=== PATIENT | male | born 1945 | race Caucasian/White ===

== ENCOUNTER → 2019-11-07 10:11 | Outpatient (CLI) | payer MEDICARE, SELFPAY ==
--- NOTE | 2019-11-07 | DI.RAD.S_ITS ---
PROCEDURE: FL BARIUM SWALLOW INDICATIONS: DYSPHAGIA COMPARISON: None. FINDINGS: Function: There is delayed and decreased esophageal peristalsis. No elicited gastroesophageal reflux. There is normal transit of a calibrated barium tablet through the esophagus into the stomach. Morphology: Air-contrast images demonstrate normal mucosal morphology. Single contrast views show no esophageal strictures, extrinsic mass effects, or diverticula. Limited images of the stomach demonstrate normal appearance. IMPRESSION: Esophageal dysmotility Dictated by: Jl Lora M.D. on 11/07/2019 at 10:58 Approved by: Jl Lora M.D. on 11/07/2019 at 10:59
== END ==
PROVIDERS: PCP Physician Assistant Medical; Referring Provider Physician Assistant Medical; Visit Provider Physician Assistant Medical
DX: R13.10 Dysphagia, unspecified (principal); K22.4 Dyskinesia of esophagus
CPT/HCPCS: 74220

== ENCOUNTER 2023-09-15 17:07 | Inpatient (IN) | payer MEDICARE, SELFPAY ==
[2023-09-15] VITALS (14 sets, daily range): BP systolic 110–156; BP diastolic 55–78; PULSE 55–83; RESP 18–39; TEMP 35.9–36.6; O2SAT 90–99; BMI 18.1
[2023-09-15 17:48] LABS: Add Manual Diff / Slide Review NO; Basophils Absolute Auto 0 /uL (0-100); Basophils Percent Auto 0.6 % (0-2); Eosinophils Absolute Auto 200 /uL (0-450); Hematocrit 34.1 % (41-53); Hemoglobin 11.1 g/dL (13.5-17.5); Lymphocytes Absolute Auto 1600 /uL (1100-4500); Lymphocytes Percent Auto 18.3 % (25-40); Mean Corpuscular HGB Conc 32.5 % (30-36); Mean Corpuscular Hemoglobin 28.1 PG (26-34); Mean Corpuscular Volume 86.4 fL (80-100); Monocytes Absolute Auto 400 /uL (0-900); Monocytes Percent Auto 4.6 % (3-14); Neutrophils Absolute Auto 6300 /uL (1500-7000); Neutrophils Percent Auto 74.5 % (50-75); Platelet Count 427 X10^3/uL (150-400); Red Blood Cell Count 3.94 X10^6/uL (4.5-5.9); White Blood Cell Count 8.5 X10^3/uL (4.5-11.0)
[2023-09-15 17:55] LABS: INR 1.1 (0.9-1.3); Prothrombin Time 12.1 SECONDS (9.4-12.5)
[2023-09-15 17:58] LABS: PTT Partial Thromboplastin Tim 32 SECONDS (25.1-36.5)
[2023-09-15 17:59] LABS: Alanine Aminotransferase 20 IU/L (<50); Albumin 3.4 g/dL (3.5-5.0); Albumin Globulin Ratio 0.8 (1.0-2.8); Alkaline Phosphatase 93 U/L (38-126); Aspartate Aminotransferase 34 IU/L (17-59); BUN Creatinine Ratio 12.8 (6-22); Bilirubin Total 0.6 mg/dL (0.2-1.3); Blood Urea Nitrogen 19 mg/dL (9-20); Carbon Dioxide 27 mmol/L (22-32); Chloride 107 mmol/L (98-107); Estimated Glomerular Filt Rate 48 mL/min (>60); Globulin 4.1 g/dL (1.7-4.1); Glucose 103 mg/dL (80-110); HEMOLYSIS < 15 (0-50); Potassium 4.6 mmol/L (3.4-5.1); Sodium 137 mmol/L (137-145); Total Protein 7.5 g/dL (6.3-8.2)
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
--- NOTE | 2023-09-15 18:33 | DI.CT.S_ITS ---
PROCEDURE: CT ABDOMEN PELVIS W CON INDICATIONS: abdominal pain TECHNIQUE: After the administration of intravenous contrast, axial sections acquired from the lung bases to the pubic symphysis. Coronal and sagittal reformats were performed. For radiation dose reduction, the following was used: automated exposure control, adjustment of mA and/or kV according to patient size. COMPARISON: None. FINDINGS: Image quality: Diagnostic. Lower Chest: Lung findings are reported separately on CT angiogram of the chest study. ABDOMEN: Liver: No solid mass. Gallbladder: Cholelithiasis without CT evidence for acute cholecystitis. Biliary ducts: No biliary dilation. Pancreas: No ductal dilation. Spleen: Size is within normal limits. Adrenal Glands: No adrenal nodules. Kidneys and Ureters: No hydronephrosis. No solid mass. No complex renal cystic lesion which requires follow up. Stomach and Bowel: There is also circumferential wall thickening and associated pericolonic inflammation of the distal sigmoid colon and rectum. There is circumferential wall thickening and inflammatory changes of the distal small bowel and ileum with associated fluid-filled bowel. Moderate wall thickening. No evidence for bowel obstruction proximally. Scattered colonic diverticulosis. Peritoneum: No abnormal intraperitoneal fluid. No free air. Ventral Wall: No significant ventral hernia. Abdominal Nodes: No retroperitoneal or mesenteric adenopathy by size criteria. Vessels: Moderate atherosclerotic calcifications of the abdominal aorta with mild aneurysmal dilatation. Infrarenal abdominal aorta measures up to 3.4 x 3.1 cm (28/series 2). IVC appears patent. PELVIS: Pelvic Organs: Unremarkable. Bladder: No bladder wall thickening, accounting for underdistention. Pelvic Nodes: No enlarged lymph nodes. Miscellaneous: No inguinal hernias are seen. Bones: No aggressive osseous abnormality. No acute vertebral body compression fractures. Multilevel spondylitic changes throughout the imaged spine. No suspicious osseous lesions. IMPRESSION: 1. Circumferential wall thickening and inflammatory changes involving the distal sigmoid colon, rectum, and distal small bowel and terminal ileum likely related to infectious or inflammatory colitis/enteritis. Favor inflammatory etiology given distribution. No evidence for bowel obstruction. 2. Colonic diverticulosis. 3. Atherosclerosis with infrarenal abdominal aortic aneurysm measuring up to 3.4 cm in size. 4. Cholelithiasis without CT evidence for acute cholecystitis. Other chronic findings as above. Dictated by: Stewart Zarate M.D. on 09/15/2023 at 20:24 Approved by: Stewart Zarate M.D. on 09/15/2023 at 20:30
--- NOTE | 2023-09-15 18:33 | DI.CT.S_ITS ---
PROCEDURE: CT ANGIO CHEST PE PROTOCOL INDICATIONS: hemoptosis TECHNIQUE: After the administration of intravenous contrast, 2 mm thick sections acquired from the pulmonary apices to the posterior costophrenic angles. 3-dimensional maximum intensity projection (MIP) coronal and sagittal reformats were then acquired through the thorax. For radiation dose reduction, the following was used: automated exposure control, adjustment of mA and/or kV according to patient size. COMPARISON: None. FINDINGS: Image quality: Diagnostic. Pulmonary arteries: Pulmonary arteries are normal in size, and demonstrate no intraluminal filling defects to suggest central pulmonary embolism. Lower Neck: No enlarged lymph nodes. Thyroid: No thyroid nodules which require sonographic follow up, per consensus guidelines. Axillae: No enlarged lymph nodes. Chest Wall: Unremarkable. Bones: No acute vertebral body compression fractures. Multilevel spondylitic changes throughout the imaged spine. No suspicious osseous lesions. Lungs and Pleura: No pneumothorax or pleural effusions. Moderate upper lobe predominant pulmonary emphysema. No pneumothorax. Bilateral perihilar airway thickening. Mild patchy bibasilar atelectasis. Very small tree-in-bud opacities of the periphery of the bilateral lower lobes more pronounced on the right. Suggestion of mild filling defects within the airways of the bilateral lower lobes suggestive of aspiration. Patchy consolidations involving the right apex extending towards the medial right upper lobe inferiorly. No mass effect upon the adjacent structures. Heart: Heart size is normal. No pericardial effusion. Thoracic Vessels: No aortic aneurysm. Atherosclerosis. Mediastinum and [place]: No enlarged lymph nodes. Esophagus: No wall thickening. No hiatal hernia. Upper Abdomen: Cholelithiasis. Atherosclerosis. Other visualized upper abdomen solid organs and bowel loops appear unremarkable. IMPRESSION: No acute pulmonary embolus. Patchy airspace consolidations involving the right lung apex extending towards the inferior, medial right upper lobe likely representing acute infectious or inflammatory process. Neoplasm not excluded. Recommend follow-up CT in 3 months to document stability versus resolution. No adenopathy seen. No suspicious pulmonary nodules or mass lesions otherwise. Numerous scattered peripheral tree-in-bud opacities predominantly in the dependent portions of the bilateral lower lobes with associated mild lower lobe bronchiectasis. Findings are suggestive of aspiration. Atypical pneumonia or mycobacterial infection may have a similar appearance. Moderate upper lobe predominant pulmonary emphysema. Moderate atherosclerotic vascular calcifications. Dictated by: Stewart Zarate M.D. on 09/15/2023 at 20:16 Approved by: Stewart Zarate M.D. on 09/15/2023 at 20:24
[2023-09-15] MEDS: methylPREDNISolone 125 MG/2 ML VIAL IV (18:45)
[2023-09-15] MEDS: SODIUM CHLORIDE 0.9% 1,000 ML 1000 ML IV (18:45)
[2023-09-15] MEDS: ONDANSETRON 4 MG/2 ML INJ IV (18:45)
[2023-09-15] MEDS: ALBUTEROL/IPRATROPIUM 3 ML AMPUL INH (19:08)
[2023-09-15] MEDS: AZITHROMYCIN 500 MG in DEXTROSE 5% IN WATER 250 ML 250 MG IV (21:33)
[2023-09-15 21:48] LABS: NT-proBNP (BNP-Adult 18+) 1490 pg/mL (<450); Troponin I < 0.012 ng/mL (0.01-0.034)
--- NOTE | 2023-09-15 22:03 | P.HP_ITS ---
History of Present Illness History of Present Illness Date Patient Seen: 09/15/23 Chief complaint: coughing up blood, short of breath Narrative: 78 y/o with PMH of Crohn's disease, HTN, HLD, smoking and COPD, seen in another hospiktal few days ago with shortness of breath, cough and diaghnosed with PNA, COPD Exacerbation, prescribed Levaquin and discharged home. Since he did not improve and dyspnea and hemoptysis got worse, he presented to ED. CT showing RUL infiltrate with possible underlying mass. Not septic. Given Cefepime and admitted for IV abx and oxygen. [facility] Medical History Chronic anemia Crohn's disease Nonsustained ventricular tachycardia COPD (chronic obstructive pulmonary disease) Social History household members: friend(s) and caregiver Smoking Status: Current every day smoker alcohol intake: never Meds Home Medications and Allergies Home Medications Medication Instructions Recorded Confirmed Type LISINOPRIL/HYDROCHLOROTHIAZIDE 1 tab PO QDAY ##0 05/14/11 History (Lisinopril-Hctz 20-25 MG Tab) ferrous gluconate 240 mg (27 mg 240 mg PO ##0 04/26/17 History iron) tablet (Iron High Potency) omega 4-mux-cmx-fish oil 1,000 mg 1,000 mg PO ##3 04/26/17 History (120 mg-180 mg) capsule (Fish Oil) Allergies Allergy/AdvReac Type Severity Reaction Status Date / Time adhesive [ADHESIVE] Allergy Mild RASH Verified 09/15/23 17:20 simvastatin [SIMVASTATIN] Allergy Mild WELTS Verified 09/15/23 17:20 Review of Systems Constitutional Comments: He lost weight, knows b/o the belt tightening rather then weighing. Without fever or chills Cardiovascular Comments: w/o chest pain Respiratory Comments: hemoptysis today short of breath Gastrointestinal Comments: episodic diarrhea and abdominal pain, chronic, 2nd to Crohn's disease Genitourinary Comments: w/o dysuria Exam Vital Signs (past 8 hours): - 09/15/23 17:08 09/15/23 17:17 09/15/23 17:30 Temperature 97.8 F Pulse Rate 78 82 Respiratory Rate 18 22 Blood Pressure 156/74 H 156/78 H Pulse Oximetry 93 93 Oxygen Delivery Method Room Air Nasal Cannula Oxygen Flow Rate 3 09/15/23 17:30 09/15/23 18:00 09/15/23 18:00 Temperature Pulse Rate 83 65 Respiratory Rate 39 H 29 H Blood Pressure 126/66 Pulse Oximetry 90 L 90 L Oxygen Delivery Method Nasal Cannula Nasal Cannula Oxygen Flow Rate 3 3 09/15/23 18:30 09/15/23 18:30 09/15/23 19:00 Temperature Pulse Rate 66 65 Respiratory Rate 28 H Blood Pressure 139/63 Pulse Oximetry 91 99 Oxygen Delivery Method Nasal Cannula Nasal Cannula Oxygen Flow Rate 3 3 09/15/23 19:30 09/15/23 20:00 Temperature Pulse Rate 60 61 Respiratory Rate 33 H 32 H Blood Pressure Pulse Oximetry 93 91 Oxygen Delivery Method Nasal Cannula Nasal Cannula Oxygen Flow Rate 3 3 Oxygen Delivery Method Nasal Cannula Oxygen Flow Rate 3 Const Other: In no distress, sitting in bed eating sandwich. Appears cachectic. HENMT Other: temporal wasting, reactive pupils, eomi Neck Other: supple Resp Other: decreased air flow b/l, more on the right mild wheezes on the right b/l rhonchi, > on the right Cardio Other: RRR GI Other: not distended Skin Other: no rashes Extrem Other: atrophic muscles Psych Other: decisional Objective Labs 09/15/23 17:35 09/15/23 17:35 Labs: Laboratory Results - last 24 hr 09/15/23 17:35 WBC 8.5 RBC 3.94 L Hgb 11.1 L Hct 34.1 L MCV 86.4 MCH 28.1 MCHC 32.5 RDW 17.0 H Plt Count 427 H Neut % (Auto) 74.5 Lymph % (Auto) 18.3 L [place] % (Auto) 4.6 Eos % (Auto) 2.0 Baso % (Auto) 0.6 Neut # (Auto) 6300 Lymph # (Auto) 1600 [place] # (Auto) 400 Eos # (Auto) 200 Baso # (Auto) 0 PT 12.1 INR 1.1 APTT 32 Sodium 137 Potassium 4.6 Chloride 107 Carbon Dioxide 27 BUN 19 Creatinine 1.48 H Estimated GFR 48 L BUN/Creatinine Ratio 12.8 Glucose 103 Calcium 9.0 Total Bilirubin 0.6 AST 34 ALT 20 Alkaline Phosphatase 93 Troponin I < 0.012 NT-Pro-B Natriuret Pep 1490 H Total Protein 7.5 Albumin 3.4 L Globulin 4.1 Albumin/Globulin Ratio 0.8 L Blood Type A Positive Antibody Screen Negative Assessment & Plan Assessment and plan (1) Acute hypoxic respiratory failure: Status: Acute (2) Pneumonia: Qualifiers: Laterality: bilateral Lung location: unspecified part of lung P neumonia type: due to unspecified organism Qualified Code(s): J18.9 - Pneumonia, unspecified organism Status: Acute (3) Acute exacerbation of chronic obstructive pulmonary disease: Status: Acute (4) Smoker: Status: Acute (5) Crohn disease: Qualifiers: Digestive disease complication type: without complication G astrointestinal tract location: large intestine Qualified Code(s): K50.10 - Crohn's disease of large intestine without complications Status: Acute (6) Chronic kidney disease: Status: Acute (7) HTN (hypertension): Status: Acute (8) HLD (hyperlipidemia): Status: Acute Assessment & Plan narrative: 1. Acute Hypoxemic Respiratory Failure - not on oxygen at home - now on 5 L on admission - maintain saturation ~ 92-93 - will likely need home oxygen - 2nd to PNA, COPD exacerbation, possibly underlying mass 2. PNA/ COPD Exacerbation - failed few days of PO Levaquin - Cefepime instead - bronchodilators, steroids 3. HTN - holding lisinopril/HCTZ 4. Crohn's Disease, chronic GI bleed, anemia - on Fe supplement at home GI prophylaxis - PPI DVT prophylaxis - SCDs
[2023-09-15] MEDS: CEFEPIME 1 GM in SODIUM CHLORIDE 0.9% 100 ML IV (23:12)
--- NOTE | 2023-09-15 23:30 | PC.NURSE ---
Patient arrived to floor, a&o x3. Patient has been very cantankerous with staff members. 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 Pt states they were on his table near his bed. Asked this nurse where he can go outside to smoke. Explained to patient there is no smoking on hospital property. He became agitated, when he was told he wasn't able to go outside, he was believed to be at [facility]. Patient declines wanting to ask night provider for a nicotine patch. Patient has been verbally aggressive to staff members on multiple occasions since arriving to the floor.
[2023-09-16 04:22] VITALS: BP 121/67; PULSE 60; RESP 16; TEMP 36.6; O2SAT 93
[2023-09-16] MEDS: PANTOPRAZOLE DR 20 MG TABLET PO (06:14)
[2023-09-16 07:07] LABS: Add Manual Diff / Slide Review NO; Basophils Absolute Auto 0 /uL (0-100); Basophils Percent Auto 0.1 % (0-2); Eosinophils Absolute Auto 0 /uL (0-450); Hematocrit 29.5 % (41-53); Hemoglobin 9.6 g/dL (13.5-17.5); Lymphocytes Absolute Auto 600 /uL (1100-4500); Mean Corpuscular HGB Conc 32.7 % (30-36); Mean Corpuscular Hemoglobin 28.1 PG (26-34); Mean Corpuscular Volume 86.1 fL (80-100); Monocytes Absolute Auto 100 /uL (0-900); Monocytes Percent Auto 1.4 % (3-14); Neutrophils Absolute Auto 4900 /uL (1500-7000); Neutrophils Percent Auto 87.5 % (50-75); Platelet Count 362 X10^3/uL (150-400); Red Blood Cell Count 3.42 X10^6/uL (4.5-5.9); Red Cell Distribution Width 16.5 % (11.6-14.8); White Blood Cell Count 5.6 X10^3/uL (4.5-11.0)
[2023-09-16 07:30] VITALS: O2SAT 94
[2023-09-16 08:00] VITALS: BP 132/65; PULSE 55; RESP 14; TEMP 36.3; O2SAT 95
[2023-09-16] MEDS: CEFEPIME 1 GM in SODIUM CHLORIDE 0.9% 100 ML IV (08:45)
[2023-09-16] MEDS: predniSONE 20 MG TABLET 40 MG PO (08:46)
--- NOTE | 2023-09-16 09:53 | SLP.IPNOTE ---
Began evaluation but paused as pt needed to use restroom. After beginning evaluation, per Dr. Mcguire, hold speech evaluation for the moment. Ruling out TB.
[2023-09-16] MEDS: VANCOMYCIN 1,500 MG/300 ML PIGGYBACK 200 MG IV (10:01)
[2023-09-16 11:43] LABS: MRSA (Nasal) PCR NOT DETECTED (Not Detect)
[2023-09-16 12:00] VITALS: BP 132/64; PULSE 56; RESP 18; TEMP 36.1; O2SAT 95
--- NOTE | 2023-09-16 14:09 | P.DS_ITS ---
History of Present Illness History of Present Illness Date Patient Seen: 09/16/23 Time Patient Seen: 14:09 Chief complaint: coughing up blood, short of breath Narrative: 78 y/o with PMH of Crohn's disease, HTN, HLD, smoking and COPD, seen in another hospiktal few days ago with shortness of breath, cough and diaghnosed with PNA, COPD Exacerbation, prescribed Levaquin and discharged home. Since he did not improve and dyspnea and hemoptysis got worse, he presented to ED. CT showing RUL infiltrate with possible underlying mass. Not septic. Given Cefepime and admitted for IV abx and oxygen. Discharge Providers Provider Date of admission: 09/15/23 21:50 Discharge Date: 09/16/23 Primary care physician: Tresa Fonseca PA-C Consults: 09/16/23 08:04 Consult to Speech Therapy Evaluate & Treat Comment: ? aspiration Physician Instructions: Evaluate and treat Discharge provider: Barber Mcguire DO Summary Hospital Course Discharge Diagnosis: #COPD with exacerbation #acute respiratory failure with hypoxia. #bacterial pneumonia #TB rule out #crohn's disease #HTN #HLD #Tobacco use Hospital Course: 78 y/o with PMH of Crohn's disease, HTN, HLD, smoking and COPD, seen in another hospital a few days ago with shortness of breath, cough and diaghnosed with PNA, COPD Exacerbation, prescribed Levaquin and discharged home. He complained that he had difficult time breathing and had an episode of hemoptysis. He was hypoxic on room air initially. He was admitted for further management. With hemoptysis, likely immunosuppression in setting of crohn's disease, and diffuse appearance of imaging patient was placed on airborne isolation for TB rule out upon my initial review and after being notified by infection prevention. He was started on antibiotics and steroids for COPD exacerbation and bacterial pneumonia. The morning after admission, the patient had no complaints, was no longer requiring supplemental oxygen, and was ambulating without shortness of breath or hypoxia in his room. Quant gold testing was sent, along with only a single AFB sputum. MRSA swab was negative. He had no evidence of bleeding, including hemoptysis or melena or hematochezia. He wished to be discharged home after risk and benefit discussion. I contacted the [facility] regarding TB rule out. Quant gold and AFB are currently pending at the time of discharge. He was discharged with another 4 days of steroids, along with cefdinir and doxycycline for presumed pneumonia and to continue treatment for another 5 days. TB is much less likely at the time of discharge given quick resolution of his symptoms and he improved much more quickly than anticipated after admission. Additionally INTELLECTUAL PROPERTY LEGAL ASSISTANT evaluation was performed and did not show any evidence of aspiration. It does appear from prior imaging that he has a history of esophageal dysmotility, though there is no evidence of this at the moment. Recommend continued monitoring and possible GI evaluation as an outpatient as appearance of his CT was more consistent with aspiration. Malignancy could also not be ruled out but recommend repeat imaging in a few months after presumed resolution of his pneumonia. Time Spent with Patient Time spent: Greater than 30 minutes Exam Vital Signs (past 8 hours): - 09/16/23 07:30 09/16/23 08:00 09/16/23 12:00 Temperature 97.4 F L 97.0 F L Pulse Rate 55 L 56 L Respiratory Rate 14 18 Blood Pressure 132/65 132/64 Pulse Oximetry 94 95 95 Oxygen Delivery Method Nasal Cannula Oxygen Flow Rate 4 4 2 Oxygen Delivery Method Nasal Cannula Oxygen Flow Rate 2 Narrative Exam Narrative: Gen: Chronically ill appearing thin male, no acute distress Objective Labs 09/16/23 06:20 09/15/23 17:35 Labs: Laboratory Results - last 24 hr 09/15/23 09/16/23 09/16/23 17:35 06:20 10:16 WBC 8.5 5.6 RBC 3.94 L 3.42 L Hgb 11.1 L 9.6 L Hct 34.1 L 29.5 L MCV 86.4 86.1 MCH 28.1 28.1 MCHC 32.5 32.7 RDW 17.0 H 16.5 H Plt Count 427 H 362 Neut % (Auto) 74.5 87.5 H Lymph % (Auto) 18.3 L 11.0 L [place] % (Auto) 4.6 1.4 L Eos % (Auto) 2.0 0.0 L Baso % (Auto) 0.6 0.1 Neut # (Auto) 6300 4900 Lymph # (Auto) 1600 600 L [place] # (Auto) 400 100 Eos # (Auto) 200 0 Baso # (Auto) 0 0 PT 12.1 INR 1.1 APTT 32 Sodium 137 Potassium 4.6 Chloride 107 Carbon Dioxide 27 BUN 19 Creatinine 1.48 H Estimated GFR 48 L BUN/Creatinine Ratio 12.8 Glucose 103 Calcium 9.0 Total Bilirubin 0.6 AST 34 ALT 20 Alkaline Phosphatase 93 Troponin I < 0.012 NT-Pro-B Natriuret Pep 1490 H Total Protein 7.5 Albumin 3.4 L Globulin 4.1 Albumin/Globulin Ratio 0.8 L Nasal Screen MRSA (PCR) Not detected Blood Type A Positive Antibody Screen Negative [facility] Medical History Chronic anemia Crohn's disease Nonsustained ventricular tachycardia COPD (chronic obstructive pulmonary disease) Social History household members: friend(s) and caregiver Smoking Status: Current every day smoker alcohol intake: never Discharge Plan Discharge Plan Patient Disposition: Home Health Service Provider Discharge Comment: You were admitted to the hospital with hemoptysis. Your symptoms improved with antibiotics, steroids, and supportive care. A tuberculosis test was sent to rule out an atypical infection. I would recommend you stay isolated at home. The health department was informed and will follow up with you. Suspect COPD exacerbation leading to your symptoms rather than TB (feel this is very unlikely). Continue another 5 days of antibiotics. Recommend prompt follow up with primary care for specialist referral to pulmonology and gastroenterology and continued outpatient workup. Additionally recommend GI referral given previously noted esophageal dysmotility. Discharge orders & Medications Prescriptions: New prednisone 20 mg tablet 40 mg PO DAILY 4 Days Qty: 8 0RF cefdinir 300 mg capsule 300 mg PO BID 5 Days Qty: 10 0RF doxycycline hyclate 100 mg tablet 100 mg PO BID 5 Days Qty: 10 0RF albuterol sulfate 90 mcg/actuation HFA aerosol inhaler 2 puff inhalation Q6H PRN (Reason: shortness of breath or wheezing) Qty: 6.7 0RF Continued LISINOPRIL/HYDROCHLOROTHIAZIDE (Lisinopril-Hctz 20-25 MG Tab) 1 tab PO QDAY Qty: 0 ferrous gluconate [Iron High Potency] 240 MG tablet 240 mg PO Qty: 0 omega 1-zaf-dei-fish oil [Fish Oil] 1,000 MG capsule 1,000 mg PO Qty: 3 amiodarone 200 mg tablet 200 mg PO DAILY azathioprine 50 mg tablet 50 mg PO DAILY gabapentin 100 mg capsule 100 mg PO 3XD Follow up/Referrals: Tresa Fonseca PA-C [Primary Care Provider] - Diet/Activity/Treatments Diet: Diet as Tolerated and Regular Activity: As tolerated, no restrictions Visit Report/Discharge Packet Instructions: Active Tuberculosis, DI for Tuberculosis Stand Alone Forms: Patient Portal/API, Stroke Signs & Symptoms Discharge Data Primary Care Provider: Tresa Fonseca
--- NOTE | 2023-09-16 14:22 | CM.DANOTE ---
Initial DCP Assessment Note Pt is a 78 yo male, resident of [employer], arrives short of breath, coughing up blood. Admitted w/acute resp failure. PCP: Tresa Fonseca Payer: MCR/VANESSAP Reviewed chart, pt discussed in multidisciplinary rounds this morning. Dr Mcguire reports there is a slight suspicion patient has TB, although, sputum culture sent and will not return with results for an additional week and a half. Meanwhile, patient is very eager to discharge, indp w/ADLs and on no O2. Patient will be allowed to discharge. Dr Mcguire has notified public health. No barriers identified at this time to patient's discharge home w/family to assist; close outpatient f/u recommended. CM team will plan to follow closely in case any DC needs or concerns arise. IVIS Levy Discharge Planning/Care Management CM Discharge Assessment Start: 09/16/23 14:18 Freq: Status: Active Protocol: Document 09/16/23 14:18 MELODY (Rec: 09/16/23 14:22 MELODY [id number]) Discharge Planning Assessment Assigned Knitted Garment Finisher IVIS Cano DPOA/Assigned Designee Name Nicol Brizuela, friend Contact Information [phone] Advance Directives? No History Provided By Medical Record Prior Living Arrangements House Household Members friend(s),caregiver Type of transporation used prior to Drives own vehicle admit Independent with ADL's Yes Is patient alert and oriented? Yes Barriers to Discharge No Discharge Plan Home Transportation Arrangement Friends Referrals Initiated None needed
--- NOTE | 2023-09-16 14:49 | ST.IPCSEOM ---
Visit Care Team Role Provider Type Tresa Fonseca PA-C Primary Care Provider Non-Staff Specialty: Medical Address: [address] [place] [address] [address], [place], [address] Email: Christianne Jonas MD Emergency Provider Physician Referring Provider Specialty: Emergency Medicine Address: [address] [place] [address], [id number] Email: Anthony Barnard MD Admit Provider Physician Attending Provider Specialty: Internal Medicine Address: [address] [place] [address], [id number] Email: [email or web address] Diagnoses Hyperlipidemia, unspecified (09/15/23) Nicotine dependence, unspecified, uncomplicated (09/15/23) Essential (primary) hypertension (09/15/23) Pneumonia, unspecified organism (09/15/23) Chronic obstructive pulmonary disease with (acute) exacerbation (09/15/23) Acute respiratory failure with hypoxia (09/15/23) Crohn's disease of large intestine without complications (09/15/23) Chronic kidney disease, unspecified (09/15/23) Past Medical History (Last Reviewed 09/15/23 @ 22:07 by Anthony Barnard MD) Chronic anemia (Medical) COPD (chronic obstructive pulmonary disease) (Medical) Crohn's disease (Medical) Nonsustained ventricular tachycardia (Medical) Speech-Language Pathology Swallow Evaluation PROFESSIONAL ATHLETE Clinical Swallow Evaluation Start: 09/16/23 14:35 Freq: Status: Active Protocol: Document 09/16/23 14:35 CG (Rec: 09/16/23 14:49 CG [id number]) Clinical Swallow Evaluation Session Time Visit Start Time 12:10 Visit Stop Time 12:40 Total Visit Minutes 30 Visit Information Visit Number 1 Referral Referring Provider Maynor Reason for Referral chest CT suspicious for aspiration Setting Assessment Location Acute Care Visit Type Note Type Initial evaluation Patient Information Identification Type Name History Per H&P: 78 y/o with PMH of Crohn's disease, HTN, HLD, smoking and COPD, seen in another hospiktal few days ago with shortness of breath, cough and diaghnosed with PNA, COPD Exacerbation, prescribed Levaquin and discharged home. Since he did not improve and dyspnea and hemoptysis got worse, he presented to ED. CT showing RUL infiltrate with possible underlying mass. Not septic. Given Cefepime and admitted for IV abx and oxygen. Chest CT report states, Suggestion of mild filling defects within the airways of the bilateral lower lobes suggestive of aspiration. Aspiration pneumonia and TB both remain part of the differential. PROFESSIONAL ATHLETE evaluation ordered to assess for clinical s/sx aspiration. Subjective Observations Pt seated upright in bed upon PROFESSIONAL ATHLETE entry to room, frustrated that he is still in the hospital. States, I don't have any trouble swallowing, I eat anything, and, I ate half a chicken this morning. Pt was oriented to person, place, purpose, and time. Unable to state the year or current president. Pt has been agitated and stating he wants to go home. Reported by Patient/Caregiver Pain/Discomfort No Other Symptoms Other Comment Differential includes aspiration pneumonia Current Diet Regular (IDDSI 7) Baseline Feeding Method Independent in self-feeding The IDDSI Framework Protocol: IDDSI.1 Objective Assessment Mental Status Alert,Responsive,Confused, Uncooperative Oral Integrity WFL Dentition Edentulous Lip Function Within normal limits Tongue Function Within normal limits Jaw Function Within normal limits Hard/Soft Palate Function Within normal limits Comment OME largely unremarkable. Pt is edentulous and states I threw my dentures away in a [place] because he was tired of wearing them. However, he uses his gums to mash solid foods effectively. Food and Liquid Trials Position During Assessment Upright (90 degrees),In bed Liquids Trialed Thin (IDDSI 0) Solid Trials Regular (IDDSI 7) Oral Impairment Within functional limits Oral Phase Comments Pt was presented with thin liquids (ice water) via cup sip as well as regular solids (cheez it crackers). All components of oral phase appeared within functional limits, despite pt's edentulous status. Pharyngeal Impairment Within functional limits Pharyngeal Phase Comments Pt trialed serial sips of thin liquids (ice water) and completed 3oz water challenge (drinking 3oz of water at once without stopping). No overt s/sx aspiration/penetration were observed, though silent aspiration cannot be ruled out without a pharyngeal assessment. Pt also completed multiple trials of regular solids (cheez it crackers) with no overt s/sx pharyngeal phase dysfunction. Results Pt does not present with clinical s/sx aspiration. Pt has strong cued cough, is independent for feeding and oral care. He passed 3oz water challenge, which is a highly sensitive screener for aspiration risk. Additionally , pt is agitated/wary of medical interventions, states I'm fine and likely would not be compliant with an altered diet if indicated. Based on lack of overt s/sx aspiration, recommend continue with current dient. Pt is unlikely to be a chronic aspirator based on presentation, though silent aspiration cannot be ruled out without an instrumental assessment. The IDDSI Framework Protocol: IDDSI.1 Findings Swallowing Function Within functional limits Prognosis Fair Based on Cognitive status,Age Recommendations Instrumental Assessment No Swallowing Treatment No Recommended Solids Regular (IDDSI 7) Recommended Liquids Thin (IDDSI 0) Safety Precautions/Swallowing 1 to 1 distant supervision Recommendations Medication Recommendations As Tolerated Discharge Recommendations Home,computer terminal operator care facility, Home with Home Health Education Patient/Caregiver Education Described results of evaluation,Patient expressed understanding of evaluation
--- NOTE | 2023-09-16 16:28 | PC.NURSE ---
IV out and patient belongings packed up. Discussed follow up with primary care doctor and referral to pulmonolgy and gastroenterology. Discussed importance of finishing antibiotics and self isolating at home until TB results come back. Discussed worsening symptoms and when to call or come in. Stroke and Tb education provided. Patient wheeled out with N95 via w/c to private vehicle with SQUILGEER.
[2023-09-22 10:09] LABS: QuantiFERON Mitogen Value >10.00 IU/mL (.); QuantiFERON Nil Value 0.12 IU/mL (.); QuantiFERON TB Gold Plus Negative (Negative); QuantiFERON TB1 Ag Value 0.05 IU/mL (.); QuantiFERON TB2 Ag Value 0.06 IU/mL (.)
== END 2023-09-16 16:26 | disposition home health service (06) | DRG 193 ==
LOC: ED 21:14 → AC 21:50
PROVIDERS: Emergency Medicine; Internal Medicine; Admitting Provider Internal Medicine; Emergency Provider Emergency Medicine; PCP Physician Assistant Medical; Referring Provider Emergency Medicine; Visit Provider Internal Medicine
DX: J15.9 Unspecified bacterial pneumonia (principal); J96.01 Acute respiratory failure with hypoxia; J44.1 Chronic obstructive pulmonary disease with (acute) exacerbation; K50.10 Crohn's disease of large intestine without complications; D84.821 Immunodeficiency due to drugs; F17.200 Nicotine dependence, unspecified, uncomplicated; I10 Essential (primary) hypertension; D64.9 Anemia, unspecified; Z79.624 Long term (current) use of inhibitors of nucleotide synthesis
CPT/HCPCS: 36415; 71275; 74177; 80053; 81003; 83880; 84484; 85025; 85610; 85730; 86480; 86850; 86900; 86901; 87040; 87070; 87116; 87205; 87206; 87797; 92610; 93005; 94762; 96374; 96375; 99285; J0692; J2405; J2919; Q9967

== ENCOUNTER 2023-09-24 13:05 | Emergency (ER) | payer MEDICARE, SELFPAY ==
[2023-09-15 22:44] VITALS: BMI 18.1
[2023-09-24] VITALS (14 sets, daily range): BP systolic 86–101; BP diastolic 45–58; PULSE 53–79; RESP 16–23; TEMP 36.5; O2SAT 89–99; BMI 18.1
--- NOTE | 2023-09-24 13:10 | DI.RAD.S_ITS ---
PROCEDURE: XR CHEST 1V INDICATIONS: SOB TECHNIQUE: One view of the chest was acquired. COMPARISON: [facility], , CHEST 2 VIEW, 04/26/2017, 11:57. FINDINGS: Surgical changes and devices: None. Lungs and pleura: Lungs are clear. No pleural effusions or pneumothorax. Mediastinum: Mediastinal contours appear normal. Heart size is normal. Bones and chest wall: No suspicious bony lesions. Overlying soft tissues appear unremarkable. IMPRESSION: No acute pulmonary process. Dictated by: Libby Zheng M.D. on 09/24/2023 at 14:00 Approved by: Libby Zheng M.D. on 09/24/2023 at 14:06
--- NOTE | 2023-09-24 13:27 | ED_ITS ---
HPI - General Adult General Chief complaint: Dizziness Stated complaint: low bp,sob Time Seen by Provider: 09/24/23 13:09 Source: patient and family Mode of arrival: Ambulatory Limitations: no limitations History of Present Illness HPI narrative: Patient is a 78-year-old male recently was admitted to this facility for initially what was considered to be a COPD exacerbation. Was treated for pneumonia. Was discharged following day after being admitted. He was completed the course of antibiotics. He is here for evaluation of low blood pressure and shortness of breath and dizziness. He states he does have history of Crohn's disease. Does not see a provider for this. Has had diarrhea for the past several days. It was nonbloody. Denies fevers. He states he has a difficult time getting from his chair is even the bathroom without having to go to the bathroom once again. No abdominal pain. No chest pain. He was having some shortness of breath but he states that it is much better than what it was when he was admitted to the hospital here recently. He states he does get somewhat lightheaded when he stands up. Related Data Home Medications Medication Instructions Recorded Confirmed LISINOPRIL/HYDROCHLOROTHIAZIDE 1 tab PO QDAY ##0 05/14/11 (Lisinopril-Hctz 20-25 MG Tab) ferrous gluconate 240 mg (27 mg 240 mg PO ##0 04/26/17 iron) tablet (Iron High Potency) omega 2-exa-tlc-fish oil 1,000 mg 1,000 mg PO ##3 04/26/17 (120 mg-180 mg) capsule (Fish Oil) amiodarone 200 mg tablet 200 mg PO DAILY 09/16/23 09/16/23 azathioprine 50 mg tablet 50 mg PO DAILY 09/16/23 09/16/23 gabapentin 100 mg capsule 100 mg PO 3XD 09/16/23 09/16/23 Previous Rx's Medication Instructions Recorded albuterol sulfate 90 mcg/actuation 2 puff inhalation Q6H PRN 09/16/23 aerosol inhaler shortness of breath or wheezing #6.7 grams Allergies Allergy/AdvReac Type Severity Reaction Status Date / Time adhesive [ADHESIVE] Allergy Mild RASH Verified 09/24/23 13:21 simvastatin [SIMVASTATIN] Allergy Mild WELTS Verified 09/24/23 13:21 Review of Systems Review of Systems Narrative: See HPI Patient History Medical History Chronic anemia Crohn's disease Nonsustained ventricular tachycardia COPD (chronic obstructive pulmonary disease) Social History household members: friend(s) and caregiver Smoking Status: Current every day smoker alcohol intake: never Smoking Status: Current every day smoker alcohol intake frequency: holidays/special occasions only Substance Use Type: does not use Exam Initial Vital Signs Initial Vital Signs: Vital Signs Temperature 97.7 F 09/24/23 13:08 Pulse Rate 59 L 09/24/23 13:08 Respiratory Rate 16 09/24/23 13:08 Blood Pressure 86/45 L 09/24/23 13:08 Pulse Oximetry 95 09/24/23 13:08 Oxygen Delivery Method Room Air 09/24/23 13:08 Const General: cooperative, comfortable and No ill appearing HENMT Head: normal to inspection and normocephalic Resp Effort & Inspection: normal respiratory effort Auscultation: clear to auscultation bilaterally Cardio Rate: bradycardic Rhythm: regular rhythm GI Inspection: non-distended Palpation: No tender Neuro General: patient alert, patient awake, patient oriented x3 and moves all extremities Extrem General: No edema Course Orders Ordered: ED Orders 09/24/23 13:10 XR chest 1V Stat 09/24/23 13:11 RT Consult Eval and Treat NOW 09/24/23 13:28 GI Panel (Film Array) Stat 09/24/23 13:33 Complete Blood Count AUTO DIFF Stat Comprehensive Metabolic Panel Stat Magnesium Stat NT-proBNP (BNP-Adult 18+) Stat Procalcitonin Stat Troponin & CK Cardiac Panel Stat 09/24/23 14:05 EKG-12 Lead Stat Discontinued Medications Sodium Chloride (Normal Saline 0.9%) 1,000 mls @ 500 mls/hr IV BOLUS ONE Stop: 09/24/23 15:17 Last Admin: 09/24/23 14:25 Dose: 500 mls/hr Documented By: MEERA Vital Signs Vital signs: Vital Signs - 8 hr 09/24/23 13:08 09/24/23 13:15 09/24/23 13:17 Temperature 97.7 F Pulse Rate 59 L 53 L Respiratory Rate 16 Blood Pressure 86/45 L 86/48 L Pulse Oximetry 95 Oxygen Delivery Method Room Air 09/24/23 13:17 09/24/23 13:30 09/24/23 14:01 Temperature Pulse Rate 57 L 59 L 56 L Respiratory Rate Blood Pressure Pulse Oximetry 97 99 99 Oxygen Delivery Method 09/24/23 14:11 09/24/23 14:11 09/24/23 14:30 Temperature Pulse Rate 55 L 58 L Respiratory Rate 21 20 Blood Pressure 91/53 L Pulse Oximetry 98 89 L Oxygen Delivery Method 09/24/23 14:30 09/24/23 15:00 09/24/23 15:00 Temperature Pulse Rate 57 L Respiratory Rate 17 Blood Pressure 99/54 L 91/53 L Pulse Oximetry 93 Oxygen Delivery Method 09/24/23 15:30 09/24/23 15:30 09/24/23 16:00 Temperature Pulse Rate 63 64 Respiratory Rate 21 18 Blood Pressure 93/54 L Pulse Oximetry 99 99 Oxygen Delivery Method 09/24/23 16:00 09/24/23 16:30 Temperature Pulse Rate 79 Respiratory Rate Blood Pressure 92/55 L Pulse Oximetry 99 Oxygen Delivery Method Medical Decision Making Medical Records Medical records reviewed: Yes I reviewed the patient's medical records. Lab Data Lab results reviewed: Yes I reviewed the patient's lab results. 09/24/23 13:33 09/24/23 13:33 Labs: Lab Results 09/24/23 Range/Units 13:33 WBC 20.6 H (4.5-11.0) X10^3/uL RBC 3.55 L (4.5-5.9) X10^6/uL Hgb 10.1 L (13.5-17.5) g/dL Hct 32.0 L (41-53) % MCV 90.1 D (80-100) fL MCH 28.5 (26-34) PG MCHC 31.6 (30-36) % RDW 20.0 H (11.6-14.8) % Plt Count 270 (150-400) X10^3/uL Neut % (Auto) 87.6 H (50-75) % Lymph % (Auto) 8.4 L (25-40) % [place] % (Auto) 3.1 (3-14) % Eos % (Auto) 0.7 L (2-4) % Baso % (Auto) 0.2 (0-2) % Neut # (Auto) 35082 H (0119-5461) /uL Lymph # (Auto) 1700 (5132-8397) /uL [place] # (Auto) 600 (0-900) /uL Eos # (Auto) 100 (0-450) /uL Baso # (Auto) 0 (0-100) /uL Sodium 132 L (137-145) mmol/L Potassium 4.6 (3.4-5.1) mmol/L Chloride 108 H (98-107) mmol/L Carbon Dioxide 20 L (22-32) mmol/L BUN 38 H (9-20) mg/dL Creatinine 1.76 H (0.66-1.25) mg/dL Estimated GFR 39 L (>60) mL/min BUN/Creatinine Ratio 21.6 (6-22) Glucose 89 (80-110) mg/dL Calcium 8.2 L (8.4-10.2) mg/dL Magnesium 2.0 (1.6-2.3) mg/dL Total Bilirubin 0.7 (0.2-1.3) mg/dL AST 31 (17-59) IU/L ALT 13 (<50) IU/L Alkaline Phosphatase 68 (38-126) U/L Total Creatine Kinase 33 L (55-170) U/L Troponin I < 0.012 (0.01-0.034) ng/mL NT-Pro-B Natriuret Pep 428 (<450) pg/mL Total Protein 6.4 (6.3-8.2) g/dL Albumin 3.1 L (3.5-5.0) g/dL Globulin 3.3 (1.7-4.1) g/dL Albumin/Globulin Ratio 0.9 L (1.0-2.8) Procalcitonin 0.12 (<0.5) ng/mL Imaging Data Chest x-ray: Radiologist's Impression: PROCEDURE: XR CHEST 1V INDICATIONS: SOB TECHNIQUE: One view of the chest was acquired. COMPARISON: [facility], , CHEST 2 VIEW, 04/26/2017, 11:57. FINDINGS: Surgical changes and devices: None. Lungs and pleura: Lungs are clear. No pleural effusions or pneumothorax. Mediastinum: Mediastinal contours appear normal. Heart size is normal. Bones and chest wall: No suspicious bony lesions. Overlying soft tissues appear unremarkable. IMPRESSION: No acute pulmonary process. ECG Data Attestation: I personally reviewed and interpreted this ECG as follows: Interpretation: Sinus bradycardia Ventricular rate of 55 Normal axis Normal QRS Normal QTC No ST T wave changes MDM Narrative Medical decision making narrative: I suspect that the patient has a degree of dehydration since he has had diarrhea for the past several days. He was unable to provide us a stool sample. Upon my re-evaluation I found that the patient did take a dose of Imodium prior to arrival which maybe why he has been unable to produce a stool sample here. He received fluids. His blood pressure improved. Ambulated 2 times around the emergency department without shortness of breath or lightheadedness. He has a otherwise benign exam. Will discharge patient home with instructions to increase the amount of fluid that he has been drinking. He is eating here in the ER. No indication for admission to the hospital. He was given return precautions. He expressed understanding and agreement. Discharge Plan Departure Patient Disposition: Home Clinical Impression: Diarrhea Instructions: Diarrhea Activity Restrictions/Additional Instructions: Recommend that you continue to take all of your medications as directed. Be sure that you were increasing your fluid intake. Return to the emergency department for new or worsening symptoms. Prescriptions: No Action LISINOPRIL/HYDROCHLOROTHIAZIDE (Lisinopril-Hctz 20-25 MG Tab) 1 tab PO QDAY Qty: 0 ferrous gluconate [Iron High Potency] 240 MG tablet 240 mg PO Qty: 0 omega 1-abe-cbr-fish oil [Fish Oil] 1,000 MG capsule 1,000 mg PO Qty: 3 amiodarone 200 mg tablet 200 mg PO DAILY azathioprine 50 mg tablet 50 mg PO DAILY gabapentin 100 mg capsule 100 mg PO 3XD albuterol sulfate 90 mcg/actuation HFA aerosol inhaler 2 puff inhalation Q6H PRN (Reason: shortness of breath or wheezing) Qty: 6.7 0RF Referrals: Tresa Fonseca PA-C [Primary Care Provider] - Stand Alone Forms: Patient Portal/API
[2023-09-24 13:40] LABS: Add Manual Diff / Slide Review NO; Basophils Absolute Auto 0 /uL (0-100); Basophils Percent Auto 0.2 % (0-2); Eosinophils Absolute Auto 100 /uL (0-450); Eosinophils Percent Auto 0.7 % (2-4); Hemoglobin 10.1 g/dL (13.5-17.5); Lymphocytes Absolute Auto 1700 /uL (1100-4500); Lymphocytes Percent Auto 8.4 % (25-40); Mean Corpuscular HGB Conc 31.6 % (30-36); Mean Corpuscular Hemoglobin 28.5 PG (26-34); Mean Corpuscular Volume 90.1 fL (80-100); Monocytes Absolute Auto 600 /uL (0-900); Monocytes Percent Auto 3.1 % (3-14); Neutrophils Absolute Auto 18000 /uL (1500-7000); Neutrophils Percent Auto 87.6 % (50-75); Platelet Count 270 X10^3/uL (150-400); Red Blood Cell Count 3.55 X10^6/uL (4.5-5.9); White Blood Cell Count 20.6 X10^3/uL (4.5-11.0)
[2023-09-24 13:51] LABS: Alanine Aminotransferase 13 IU/L (<50); Albumin 3.1 g/dL (3.5-5.0); Albumin Globulin Ratio 0.9 (1.0-2.8); Alkaline Phosphatase 68 U/L (38-126); Aspartate Aminotransferase 31 IU/L (17-59); BUN Creatinine Ratio 21.6 (6-22); Bilirubin Total 0.7 mg/dL (0.2-1.3); Blood Urea Nitrogen 38 mg/dL (9-20); Calcium 8.2 mg/dL (8.4-10.2); Carbon Dioxide 20 mmol/L (22-32); Chloride 108 mmol/L (98-107); Creatine Kinase 33 U/L (55-170); Estimated Glomerular Filt Rate 39 mL/min (>60); Globulin 3.3 g/dL (1.7-4.1); Glucose 89 mg/dL (80-110); HEMOLYSIS 27 (0-50); Potassium 4.6 mmol/L (3.4-5.1); Sodium 132 mmol/L (137-145); Total Protein 6.4 g/dL (6.3-8.2)
[2023-09-24 14:03] LABS: NT-proBNP (BNP-Adult 18+) 428 pg/mL (<450); Troponin I < 0.012 ng/mL (0.01-0.034)
[2023-09-24 14:07] LABS: Procalcitonin 0.12 ng/mL (<0.5)
[2023-09-24] MEDS: SODIUM CHLORIDE 0.9% 1,000 ML 500 ML IV (14:25)
== END 2023-09-24 17:17 | disposition home or self-care (01) ==
PROVIDERS: Emergency Provider Emergency Medicine; PCP Physician Assistant Medical
DX: R06.02 Shortness of breath (principal); R19.7 Diarrhea, unspecified; R03.1 Nonspecific low blood-pressure reading
CPT/HCPCS: 36415; 71045; 80053; 82550; 83735; 83880; 84145; 84484; 85025; 93005; 99284

== ENCOUNTER 2024-02-25 09:43 | Emergency (ER) | payer MEDICARE, SELFPAY ==
[2023-09-15 22:44] VITALS: BMI 18.1
[2024-02-25] VITALS (10 sets, daily range): BP systolic 100–122; BP diastolic 51–59; PULSE 63–70; RESP 22; TEMP 36.6; O2SAT 97–99; BMI 19.5
--- NOTE | 2024-02-25 10:45 | ED.UPPEXIN ---
HPI - Extremity Injury (Upper) General Chief Complaint: Extremity Injury, Upper Stated Complaint: bite on right hand Time Seen by Provider: 02/25/24 10:44 Source: patient Mode of arrival: Ambulatory History of Present Illness HPI narrative: Patient is 78-year-old male presents with friend reports that he has had increased redness swelling of his right hand. He is sure what happened he does have thin skin he denies any sort of animal bite. But his right hand is quite swollen. Friend reports that he may have had a low-grade temp last night. He does have a little bit of pain. He has other skin wounds which have scabbed over. No other symptoms he has no chest pain cough abdominal pain nausea or vomiting. He has chronic eye drainage. Related Data Home Medications Medication Instructions Recorded Confirmed LISINOPRIL/HYDROCHLOROTHIAZIDE 1 tab PO QDAY ##0 05/14/11 (Lisinopril-Hctz 20-25 MG Tab) ferrous gluconate 240 mg (27 mg 240 mg PO ##0 04/26/17 iron) tablet (Iron High Potency) omega 6-biu-dvu-fish oil 1,000 mg 1,000 mg PO ##3 04/26/17 (120 mg-180 mg) capsule (Fish Oil) amiodarone 200 mg tablet 200 mg PO DAILY 09/16/23 09/16/23 azathioprine 50 mg tablet 50 mg PO DAILY 09/16/23 09/16/23 gabapentin 100 mg capsule 100 mg PO 3XD 09/16/23 09/16/23 Previous Rx's Medication Instructions Recorded albuterol sulfate 90 mcg/actuation 2 puff inhalation Q6H PRN 09/16/23 aerosol inhaler shortness of breath or wheezing #6.7 grams Allergies Allergy/AdvReac Type Severity Reaction Status Date / Time adhesive [ADHESIVE] Allergy Mild RASH Verified 09/24/23 13:21 simvastatin [SIMVASTATIN] Allergy Mild WELTS Verified 09/24/23 13:21 Patient History Medical History Chronic anemia Crohn's disease Nonsustained ventricular tachycardia COPD (chronic obstructive pulmonary disease) Social History household members: friend(s) and caregiver Smoking Status: Current every day smoker alcohol intake: never Smoking Status: Current every day smoker alcohol intake frequency: holidays/special occasions only Substance Use Type: does not use Exam Initial Vital Signs Initial Vital Signs: Vital Signs Temperature 97.9 F 02/25/24 09:50 Pulse Rate 70 02/25/24 09:50 Respiratory Rate 22 02/25/24 09:50 Blood Pressure 122/55 L 02/25/24 09:50 Pulse Oximetry 98 02/25/24 09:50 Oxygen Delivery Method Room Air 02/25/24 09:50 GENERAL: Alert 78-year-old male appears older than stated age and in [no acute] distress. HEENT: Head atraumatic,EOMI, pupils reactive, bilateral eye drainage face symmetric, [moist] mucous membranes CARDIOVASCULAR: Regular rate and rhythm without murmurs, rubs or gallops. RESPIRATORY: Breath sounds equal bilaterally, no wheezes rales or rhonchi. ABDOMEN: Soft, nontender. Normoactive bowel sounds all 4 quadrants. No guarding or rebound. EXTREMITIES: Normal range of motion, no clubbing or edema. Neurovascularly intact Right upper extremity he is able to move his fingers NEUROLOGICAL: Alert and oriented x4.Normal gait and speech. Cranial nerves II through XII grossly intact. SKIN: Right hand significant erythema over digits 345 on the dorsal side with significant streaking of erythema up past the elbow. He does have an area of a wound on the dorsal side it does not appear to be puncture wounds there has no gross drainage Course Orders Ordered: ED Orders 02/25/24 10:00 Wound Culture and Gram Stain Stat Wound Culture and Gram Stain Stat 02/25/24 11:25 Blood Culture Stat CBC Auto Diff [Complete Blood Count AUTO DIFF] Stat CMP [Comprehensive Metabolic Panel] Stat Lactate (Lactic Acid) Stat Procalcitonin Stat Discontinued Medications Sodium Chloride (Normal Saline 0.9%) 1,000 mls @ 1,000 mls/hr IV BOLUS ONE Stop: 02/25/24 11:54 Last Infusion: 02/25/24 13:09 Dose: Infused Documented By: Admin: 02/25/24 11:27 Dose: 1,000 mls/hr Documented By: TONY Ceftriaxone Sodium 1,000 mg/ (Sodium Chloride) 100 mls @ 200 mls/hr IV NOW ONE Stop: 02/25/24 10:56 Last Infusion: 02/25/24 12:27 Dose: Infused Documented By: Admin: 02/25/24 11:29 Dose: 200 mls/hr Documented By: TONY Vital Signs Vital signs: Vital Signs - 8 hr 02/25/24 11:00 02/25/24 11:00 02/25/24 11:30 Pulse Rate 64 Blood Pressure 113/58 L 113/53 L Pulse Oximetry 97 Oxygen Delivery Method Room Air 02/25/24 11:30 02/25/24 12:00 02/25/24 12:00 Pulse Rate 67 69 Blood Pressure 108/54 L Pulse Oximetry 99 98 Oxygen Delivery Method Room Air 02/25/24 12:30 02/25/24 12:30 02/25/24 13:00 Pulse Rate 67 Blood Pressure 111/55 L 113/59 L Pulse Oximetry 98 Oxygen Delivery Method 02/25/24 13:00 02/25/24 13:30 02/25/24 13:30 Pulse Rate 69 69 Blood Pressure 121/59 L Pulse Oximetry 98 97 Oxygen Delivery Method 02/25/24 14:00 02/25/24 14:00 Pulse Rate 67 Blood Pressure 110/57 L Pulse Oximetry 98 Oxygen Delivery Method MDM - Extremity Injury (Upper) Lab Data 02/25/24 11:25 02/25/24 11:25 Labs: Lab Results 02/25/24 Range/Units 11:25 WBC 22.4 H (4.5-11.0) X10^3/uL RBC 3.07 L (4.5-5.9) X10^6/uL Hgb 9.6 L (13.5-17.5) g/dL Hct 29.0 L (41-53) % MCV 94.3 (80-100) fL MCH 31.3 (26-34) PG MCHC 33.2 (30-36) % RDW 13.9 (11.6-14.8) % Plt Count 273 (150-400) X10^3/uL Neut % (Auto) 86.3 H (50-75) % Lymph % (Auto) 7.9 L (25-40) % [place] % (Auto) 4.7 (3-14) % Eos % (Auto) 0.2 L (2-4) % Baso % (Auto) 0.9 (0-2) % Neut # (Auto) 27490 H (2059-6500) /uL Lymph # (Auto) 1800 (6976-8143) /uL [place] # (Auto) 1000 H (0-900) /uL Eos # (Auto) 0 (0-450) /uL Baso # (Auto) 200 H (0-100) /uL Sodium 132 L (137-145) mmol/L Potassium 3.9 (3.4-5.1) mmol/L Chloride 106 (98-107) mmol/L Carbon Dioxide 21 L (22-32) mmol/L BUN 21 H (9-20) mg/dL Creatinine 1.76 H (0.66-1.25) mg/dL Estimated GFR 39 L (>60) mL/min BUN/Creatinine Ratio 11.9 (6-22) Glucose 102 (80-110) mg/dL Lactate 1.1 (0.7-2.1) mmol/L Calcium 8.3 L (8.4-10.2) mg/dL Total Bilirubin 0.6 (0.2-1.3) mg/dL AST 25 (17-59) IU/L ALT 9 (<50) IU/L Alkaline Phosphatase 91 (38-126) U/L Total Protein 7.1 (6.3-8.2) g/dL Albumin 3.0 L (3.5-5.0) g/dL Globulin 4.1 (1.7-4.1) g/dL Albumin/Globulin Ratio 0.7 L (1.0-2.8) Procalcitonin 0.455 (<0.5) ng/mL MDM Narrative Medical decision making narrative: MDM CC: Right hand redness Complicating co-morbidities: Crohn's disease hypertension hyperlipidemia smoking COPD Data collected from: Friend and patient Medical records reviewed: Differential considered: Extensor tendonitis, sepsis cellulitis Exam documented above, pertinent findings include: Significant erythema with streaking up arm swelling of right hand Lab Test results independently reviewed as above. Pertinent findings: WBC 22.4, hemoglobin 9.6 hematocrit 29.0 stable from previously at 10.1/32.0 CMP shows stable creatinine of 1.76 no other significant electrolyte abnormalities, bilirubin liver enzymes Lactate 1.1, procalcitonin 0.455 Imaging studies independently reviewed: None Consultations: Dr. Candelaria updated patient's symptoms test results and accepts patient Treatments: Rocephin IV fluids Re-evaluations: Patient remained stable Discussion: Patient is 78-year-old male presents today with right hand swelling and erythema. He denies any sort of injury. He does have streaking up his arm concern for infection. He is significant leukocytosis 22.5. He has a normal lactate. Blood pressure was low at 100/ 50 only x1. He received IV fluids the blood pressure was stable not tachycardic. 1430-patient getting very anxious agitated wanting to leave. He says he wants to go have a cigarette, offered him to outside and have 1 cigarette I have offered a patch I have offered Ativan he does not want any of these things stating we are done I called [facility] [phone] left voicemail. patient left without signing any paperwork. Nonetheless I gave him discharge instructions I sent an antibiotic encouraged him to pick it up. The patient is clinically sober, free from distracting injury, appears to have intact insight, judgment and reason. Does not meet criteria for involuntary hospitalization. Patient has the capacity to make decisions. The patient is also not under any duress to leave the hospital. In this scenario, it would be battery to subject the patient to treatment against his/her will. I have voiced my concerns for the patient's health given that a full evaluation and treatment had not occurred. I have discussed the need for continued evaluation to determine if there symptoms are caused by a condition that present risk of or morbidity. Risk including but not limited to , permanent disability, prolonged hospitalization, prolonged illness, were discussed. I tried offering alternative options in hopes that the patient might be amenable to partial evaluation and treatment which would be medically beneficial to the patient, though the patient declined my options and insisted on leaving. Because I have been unable to convince the patient to stay I answered all of their questions about the condition and ask them to return to the ED as soon as possible to complete their evaluation, especially if their symptoms worsen or do not improve. I emphasized that leaving against medical advice did not preclude returning here for further evaluation. I asked the patient to return if they change their mind about the further evaluation and treatment. I strongly encouraged the patient to return to this emergency department or any emergency department at any time, particularly with worsening symptoms. Discharge Plan Departure Patient Disposition: Left Against Medical Advice Clinical Impression: Cellulitis of arm, right Instructions: Cellulitis Activity Restrictions/Additional Instructions: It was recommended that you stay and be admitted to the hospital with IV antibiotics You are prescribed Augmentin 875 mg twice a day for 10 days You are at risk for severe infection and possibly loss of limb Return to emergency department at any time Prescriptions: New amoxicillin-pot clavulanate 875-125 mg tablet 1 tab PO BID Qty: 20 0RF No Action LISINOPRIL/HYDROCHLOROTHIAZIDE (Lisinopril-Hctz 20-25 MG Tab) 1 tab PO QDAY Qty: 0 ferrous gluconate [Iron High Potency] 240 MG tablet 240 mg PO Qty: 0 omega 3-bpw-rfx-fish oil [Fish Oil] 1,000 MG capsule 1,000 mg PO Qty: 3 amiodarone 200 mg tablet 200 mg PO DAILY azathioprine 50 mg tablet 50 mg PO DAILY gabapentin 100 mg capsule 100 mg PO 3XD albuterol sulfate 90 mcg/actuation HFA aerosol inhaler 2 puff inhalation Q6H PRN (Reason: shortness of breath or wheezing) Qty: 6.7 0RF Referrals: Tresa Fonseca PA-C [Primary Care Provider] - Stand Alone Forms: Patient Portal/API, Against Medical Advice
[2024-02-25] MEDS: SODIUM CHLORIDE 0.9% 1,000 ML 1000 ML IV (11:27)
[2024-02-25] MEDS: cefTRIAXone 1,000 MG in SODIUM CHLORIDE 0.9% 100 ML 200 MG IV (11:29)
[2024-02-25 11:37] LABS: Add Manual Diff / Slide Review NO; Basophils Absolute Auto 200 /uL (0-100); Basophils Percent Auto 0.9 % (0-2); Eosinophils Absolute Auto 0 /uL (0-450); Eosinophils Percent Auto 0.2 % (2-4); Hemoglobin 9.6 g/dL (13.5-17.5); Lymphocytes Absolute Auto 1800 /uL (1100-4500); Lymphocytes Percent Auto 7.9 % (25-40); Mean Corpuscular HGB Conc 33.2 % (30-36); Mean Corpuscular Hemoglobin 31.3 PG (26-34); Mean Corpuscular Volume 94.3 fL (80-100); Monocytes Absolute Auto 1000 /uL (0-900); Monocytes Percent Auto 4.7 % (3-14); Neutrophils Absolute Auto 19400 /uL (1500-7000); Neutrophils Percent Auto 86.3 % (50-75); Platelet Count 273 X10^3/uL (150-400); Red Blood Cell Count 3.07 X10^6/uL (4.5-5.9); Red Cell Distribution Width 13.9 % (11.6-14.8); White Blood Cell Count 22.4 X10^3/uL (4.5-11.0)
[2024-02-25 11:48] LABS: Alanine Aminotransferase 9 IU/L (<50); Albumin Globulin Ratio 0.7 (1.0-2.8); Alkaline Phosphatase 91 U/L (38-126); Aspartate Aminotransferase 25 IU/L (17-59); BUN Creatinine Ratio 11.9 (6-22); Bilirubin Total 0.6 mg/dL (0.2-1.3); Blood Urea Nitrogen 21 mg/dL (9-20); Calcium 8.3 mg/dL (8.4-10.2); Carbon Dioxide 21 mmol/L (22-32); Chloride 106 mmol/L (98-107); Estimated Glomerular Filt Rate 39 mL/min (>60); Globulin 4.1 g/dL (1.7-4.1); Glucose 102 mg/dL (80-110); HEMOLYSIS < 15 (0-50); Lactate (Lactic Acid) 1.1 mmol/L (0.7-2.1); Potassium 3.9 mmol/L (3.4-5.1); Sodium 132 mmol/L (137-145); Total Protein 7.1 g/dL (6.3-8.2)
[2024-02-25 12:05] LABS: Procalcitonin 0.455 ng/mL (<0.5)
== END 2024-02-25 14:36 | disposition left against medical advice (07) ==
LOC: ED 13:40 → AC 14:30 → ICU 14:40 → AC 15:58
PROVIDERS: Emergency Provider Emergency Medicine; PCP Physician Assistant Medical; Referring Provider Emergency Medicine
DX: L03.113 Cellulitis of right upper limb (principal)
CPT/HCPCS: 36415; 80053; 83605; 84145; 85025; 87040; 87070; 87075; 87077; 87147; 87205; 96361; 96365; 99284; J0696

== ENCOUNTER 2025-03-20 14:37 | Emergency (ER) | payer MEDICARE, SELFPAY ==
[2023-09-15 22:44] VITALS: BMI 18.1
[2025-03-20] VITALS (11 sets, daily range): BP systolic 120–148; BP diastolic 56–67; PULSE 59–86; RESP 18–26; TEMP 36.4; O2SAT 93–100; BMI 19.5
--- NOTE | 2025-03-20 15:14 | ED.MALEGU ---
HPI - Male Genitourinary General Chief complaint: Urogenital-Male Stated complaint: Sand coming out of ear Time Seen by Provider: 03/20/25 15:14 Source: patient and other Mode of arrival: Wheelchair Limitations: no limitations History of Present Illness HPI Narrative: 79-year-old male history of Crohn's, hypertension, dyslipidemia, COPD and chronic tobacco use presents with complaint of sediment or sand coming out of penis.Patient states this morning he woke up and urinated and had what looks like ?diced carrotts.Patient states was not painful. He states he has had sand or sediment that has been coming out when he urinates he states there is liquid as well. He states no dysuria, no frequency no sense of urgency or incomplete emptying. He notes chronic abdominal pain that is mid abdomen has not changed from his normal. He relates this to his chronic Crohn's disease. He denies fevers or chills. No nausea or vomiting. He relates that he has chronic diarrhea from his Crohn's, denies any black or bloody stools. No testicular pain. Patient has not had similar symptoms in the past. States he is on medication for his Crohn's disease, hypertension, dyslipidemia they are unsure of the name of his medications but sounds like he is on azathioprine for his Crohn's. Both patient and caregiver state he does not take any anticoagulants. He states he has had prior abdominal surgery but does not recall what it was. Does continue to use tobacco, no daily alcohol, no recreational drugs. He does have a caregiver who is present with him. He follows with KIRSTIE Fonseca. Related Data Home Medications ?Medication ?Instructions ?Recorded ?Confirmed LISINOPRIL/HYDROCHLOROTHIAZIDE 1 tab PO QDAY ##0 05/14/11 (Lisinopril-Hctz 20-25 MG Tab) ferrous gluconate 240 mg (27 mg 240 mg PO ##0 04/26/17 iron) tablet (Iron High Potency) omega 4-ivh-idt-fish oil 1,000 mg 1,000 mg PO ##3 04/26/17 (120 mg-180 mg) capsule (Fish Oil) amiodarone 200 mg tablet 200 mg PO DAILY 09/16/23 09/16/23 azathioprine 50 mg tablet 50 mg PO DAILY 09/16/23 09/16/23 gabapentin 100 mg capsule 100 mg PO 3XD 09/16/23 09/16/23 Previous Rx's ?Medication ?Instructions ?Recorded albuterol sulfate 90 mcg/actuation 2 puff inhalation Q6H PRN 09/16/23 aerosol inhaler shortness of breath or wheezing #6.7 grams amoxicillin 875 mg-potassium 1 tab PO BID #20 tabs 03/20/25 clavulanate 125 mg tablet Allergies Allergy/AdvReac Type Severity Reaction Status Date / Time adhesive (ADHESIVE) AdvReac Mild RASH Verified 03/20/25 19:32 simvastatin (SIMVASTATIN) AdvReac Mild WELTS Verified 03/20/25 19:32 Review of Systems Review of Systems ROS Unobtainable: All systems reviewed & are unremarkable except as noted in HPI and below Patient History Medical History Chronic anemia Crohn's disease Nonsustained ventricular tachycardia COPD (chronic obstructive pulmonary disease) Social History household members: friend(s) and caregiver alcohol intake: never alcohol intake frequency: holidays/special occasions only Exam Narrative Exam Narrative: GENERAL: Alert and oriented x three, mild exam HEENT: Head normocephalic, atraumatic, EOMI, pupils reactive, face symmetric, moist mucous membranes NECK: Supple, full range of motion CARDIOVASCULAR: Regular rate and rhythm without murmurs, rubs or gallops. RESPIRATORY: Breath sounds equal bilaterally, no wheezes rales or rhonchi. ABDOMEN: Soft, mild midline tenderness, nondistended. Normoactive bowel sounds all 4 quadrants. No guarding or rebound, rigidity, no mass : No CVA tenderness, Male: normal external examination, no penile discharge or lesions, testicles non-tender, cremasteric reflex intact, no inguinal hernias noted. EXTREMITIES: Normal range of motion, no clubbing or edema. Neurovascularly intact NEUROLOGICAL: Cranial nerves II through XII grossly intact. Moving all extremities SKIN: Warm, dry, no petechiae, no rashes or lesions. Initial Vital Signs Initial Vital Signs: Vital Signs Temperature 97.6 F 03/20/25 14:51 Pulse Rate 64 03/20/25 14:51 Respiratory Rate 18 03/20/25 14:51 Blood Pressure 138/63 03/20/25 14:51 Pulse Oximetry 100 03/20/25 14:51 Oxygen Delivery Method Room Air 03/20/25 14:51 Course Orders Ordered: ED Orders 03/20/25 15:15 CBC Auto Diff [Complete Blood Count AUTO DIFF] Stat CMP [Comprehensive Metabolic Panel] Stat Lipase Stat 03/20/25 15:23 CT kidney ureter bladder (KUB) Stat Discontinued Medications Piperacillin Sod/Tazobactam (Sod 4.5 gm/ Sodium Chloride) 100 mls @ 200 mls/hr IV NOW ONE Stop: 03/20/25 17:53 Vital Signs Vital signs: Vital Signs - 8 hr 03/20/25 16:00 03/20/25 16:01 03/20/25 16:01 Pulse Rate 59 L 59 L Respiratory Rate 26 H 26 H Blood Pressure 120/56 L Pulse Oximetry 99 99 03/20/25 16:30 03/20/25 16:30 03/20/25 17:00 Pulse Rate 60 Respiratory Rate 26 H Blood Pressure 144/67 H 127/60 Pulse Oximetry 99 03/20/25 17:00 03/20/25 17:30 03/20/25 17:30 Pulse Rate 60 59 L Respiratory Rate 25 H 25 H Blood Pressure 135/63 Pulse Oximetry 98 98 03/20/25 18:02 03/20/25 18:03 03/20/25 18:03 Pulse Rate 86 73 Respiratory Rate 25 H Blood Pressure 148/67 H Pulse Oximetry 93 93 MDM - Male Genitourinary Lab Data 03/20/25 15:15 03/20/25 15:15 Labs: Lab Results 03/20/25 Range/Units 15:15 WBC 10.6 (4.5-11.0) X10^3/uL RBC 3.74 L (4.5-5.9) X10^6/uL Hgb 11.2 L (13.5-17.5) g/dL Hct 33.8 L (41-53) % MCV 90.6 (80-100) fL MCH 29.9 (26-34) PG MCHC 33.0 (30-36) % RDW 14.6 (11.6-14.8) % Plt Count 263 (150-400) X10^3/uL Neut % (Auto) 79.5 H (50-75) % Lymph % (Auto) 13.7 L (25-40) % Dodge % (Auto) 5.6 (3-14) % Eos % (Auto) 0.8 L (2-4) % Baso % (Auto) 0.4 (0-2) % Neut # (Auto) 8400 H (5477-0846) /uL Lymph # (Auto) 1500 (0560-9727) /uL Dodge # (Auto) 600 (0-900) /uL Eos # (Auto) 100 (0-450) /uL Baso # (Auto) 0 (0-100) /uL Sodium 131 L (137-145) mmol/L Potassium 4.5 (3.4-5.1) mmol/L Chloride 101 (98-107) mmol/L Carbon Dioxide 24 (22-32) mmol/L BUN 33 H (9-20) mg/dL Creatinine 1.95 H (0.66-1.25) mg/dL Estimated GFR 34 L (>60) mL/min BUN/Creatinine Ratio 16.9 (6-22) Glucose 107 H (70-99) mg/dL Calcium 8.6 (8.4-10.2) mg/dL Total Bilirubin 0.4 (0.2-1.3) mg/dL AST 24 (17-59) IU/L ALT 7 (<50) IU/L Alkaline Phosphatase 95 (38-126) U/L Total Protein 8.3 H (6.3-8.2) g/dL Albumin 3.7 (3.5-5.0) g/dL Globulin 4.6 H (1.7-4.1) g/dL Albumin/Globulin Ratio 0.8 L (1.0-2.8) Lipase 31 (23-300) U/L [facility] Narrative Medical decision making narrative: Labs show white count of 10 hemoglobin of 11 platelets of 263, sodium 131, creatinine is 1.95 was 1.76 on February 25, 2024. You glucose is 107. Urine CT KUB, image findings limited given absence IV contrast concerning for complicated acute diverticulitis with a colovesical fistula adjacent 1.9 x 4.8 x 1.9 cm interloop abscess located between urinary bladder and inflamed small and large bowel. Scattered air-fluid levels with a mildly dilated small bowel correlate for ileus or less likely small bowel obstruction. Cholelithiasis without inflammatory changes concerning for acute cholecystitis. Status post aortofemoral bypass. Abdominal aortic aneurysm. No retroperitoneal hematoma. Did speak with Dr. Adams, urology: Notes he is also followed by Colorectal surgery but that has happy to assist with General surgery if they feel comfortable with patient here. Spoke with Dr. Frazier General surgery: He came in evaluated the patient here recommends transfer to a larger facility for IR and Colorectal surgery. Discussed findings with the patient, he is adamant that he does not wish to be here. We discussed his findings from today he is aware that untreated this we will kill him. Patient notes that he is 79 years old and states he can not live forever. He is alert, oriented appears competent to make decisions expresses his understanding in his findings today as a result. He was also seen with General surgery. He did state we can reach out to POA to let him know that he is here and he would like a phone but he does not wish for us to discuss his case with his POA. 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 There is a connection between the bladder and your bowel and stool is moving from the bowel to the bladder and you are urinating out stool. There was an abscess surrounding as well as diverticulitis or an infection at that site. You need surgery to repair this and if you do not have surgery this we will continue to worsen and kill you. You have been prescribed an antibiotic but this will not fix or solve your problem. You can return at any time for re-evaluation and care but you need to be sent to a larger facility that can repair this, with colorectal surgery and possibly IR or Interventional Radiology. Prescriptions: New amoxicillin-pot clavulanate 875-125 mg tablet 1 tab PO BID Qty: 20 0RF No Action LISINOPRIL/HYDROCHLOROTHIAZIDE (Lisinopril-Hctz 20-25 MG Tab) 1 tab PO QDAY Qty: 0 ferrous gluconate [Iron High Potency] 240 MG tablet 240 mg PO Qty: 0 omega 4-tfb-mve-fish oil [Fish Oil] 1,000 MG capsule 1,000 mg PO Qty: 3 amiodarone 200 mg tablet 200 mg PO DAILY azathioprine 50 mg tablet 50 mg PO DAILY gabapentin 100 mg capsule 100 mg PO 3XD albuterol sulfate 90 mcg/actuation HFA aerosol inhaler 2 puff inhalation Q6H PRN (Reason: shortness of breath or wheezing) Qty: 6.7 0RF Referrals: Tresa Fonseca PA-C [Primary Care Provider, Medical] Stand Alone Forms: Patient Portal/API, Against Med. Advice (Irish)
--- NOTE | 2025-03-20 15:23 | DI.CT.S_ITS ---
PROCEDURE: CT KIDNEY URETER BLADDER (KUB) INDICATIONS: sediment, diced carrots in urine when he urinates today TECHNIQUE: Axial sections were acquired from the lung bases to the pubic symphysis. Coronal and sagittal reformats were performed. For radiation dose reduction, the following was used: automated exposure control, adjustment of mA and/or kV according to patient size. COMPARISON: [facility], CT, CT ABDOMEN PELVIS W CON, 09/15/2023, 18:43. FINDINGS: Image quality: Diagnostic. Lower Chest: Three-vessel coronary artery calcifications. Dense mitral valve and aortic valve calcifications. Emphysema noted in the lung bases. URINARY: Right Kidney: No stones or hydronephrosis. Right Ureter: No hydroureter. Left Kidney: No stones or hydronephrosis. Left Ureter: No hydroureter. Bladder: No bladder stone or mass. Extensive circumferential bladder wall thickening. Air is present in the urinary bladder. Colovesical fistula described below. ABDOMEN: Liver: No contour-deforming solid mass. Gallbladder: Cholelithiasis without gallbladder wall thickening or inflammatory changes. Biliary ducts: No biliary dilation. Pancreas: No ductal dilation. Spleen: Size is within normal limits. Adrenal Glands: Diffuse nodular thickening of the left adrenal gland. Normal right adrenal gland. Stomach and Bowel: Colonic diverticulosis is present. Long segment thick- walled sigmoid colon with surrounding pericolonic fat stranding is present. Apparent fistula tract is identified between the dome of the urinary bladder to the inflamed sigmoid colon best seen on image 4, 48. In addition, there is a loop of mildly distended small bowel located in the pelvis in close proximity to the inflammatory changes measuring up to 2.8 cm with an associated positive small bowel feces sign. Additional areas of small bowel dilation noted in the right lower quadrant best seen on image 2, 89. Scattered small bowel and large bowel air-fluid levels are noted. Appendix is not seen. 1.9 x 4.8 x 1.9 cm fluid and gas containing interloop collection is noted adjacent to the bladder and inflamed small and large bowel best seen on images 2, 101 and 4, 48. Peritoneum: No abnormal intraperitoneal fluid. No free air. Ventral Wall: No hernia. Abdominal Nodes: No enlarged retroperitoneal or mesenteric lymph nodes. Vessels: Extensive atheromatous calcified plaques are noted in the abdominal aorta and mesenteric vessels. Aneurysmal dilation of the infrarenal abdominal aorta measures 3.5 cm. Patient is status post aorta bi-iliac bypass. No retroperitoneal hematoma is noted. PELVIS: Pelvic Organs: Mild prostate and seminal vesicle enlargement. Pelvic Nodes: Unremarkable. Miscellaneous: Small fat containing right femoral hernia on image 122. No inguinal hernia. Bones: Unremarkable. Multilevel degenerative disc disease and facet arthopathy noted. Bilateral SI joint fusion. IMPRESSION: Imaging findings limited given absence of intravenous contrast. Imaging findings concerning for complicated acute diverticulitis with a colovesical fistula. Adjacent 1.9 x 4.8 x 1.9 cm suspected interloop abscess located between the urinary bladder and inflamed small and large bowel. Scattered air-fluid levels with mildly dilated small bowel. Correlate for ileus or less likely small bowel obstruction. Cholelithiasis without inflammatory changes concerning for acute cholecystitis. Status post aortobifemoral bypass. Abdominal aortic aneurysm. No retroperitoneal hematoma. Findings discussed with ordering clinician at 4:50 p.m. On 03/20/2025. Dictated by: Jacqueline Bertrand M.D. on 03/20/2025 at 16:28 Approved by: Jacqueline Bertrand M.D. on 03/20/2025 at 16:56
[2025-03-20 15:35] LABS: Add Manual Diff / Slide Review NO; Hematocrit 33.8 % (41-53); Hemoglobin 11.2 g/dL (13.5-17.5); Lymphocytes Absolute Auto 1500 /uL (1100-4500); Mean Corpuscular HGB Conc 33.0 % (30-36); Mean Corpuscular Hemoglobin 29.9 PG (26-34); Mean Corpuscular Volume 90.6 fL (80-100); Platelet Count 263 X10^3/uL (150-400)
--- NOTE | 2025-03-20 15:39 | PC.NURSE ---
Patient reports worsening abdominal pain, patient observed sediment in urine.
[2025-03-20 15:43] LABS: Alanine Aminotransferase 7 IU/L (<50); Albumin 3.7 g/dL (3.5-5.0); Albumin Globulin Ratio 0.8 (1.0-2.8); Blood Urea Nitrogen 33 mg/dL (9-20); Calcium 8.6 mg/dL (8.4-10.2); Carbon Dioxide 24 mmol/L (22-32); Estimated Glomerular Filt Rate 34 mL/min (>60); Globulin 4.6 g/dL (1.7-4.1); Glucose 107 mg/dL (70-99); HEMOLYSIS < 15 (0-50); Total Protein 8.3 g/dL (6.3-8.2)
[2025-03-20 16:05] LABS: Alkaline Phosphatase 95 U/L (38-126); Chloride 101 mmol/L (98-107); Lipase 31 U/L (23-300); Potassium 4.5 mmol/L (3.4-5.1); Sodium 131 mmol/L (137-145)
--- NOTE | 2025-03-20 18:08 | PC.NURSE ---
pt up to use the restroom again. Ambulates well with standby assist.
--- NOTE | 2025-03-20 18:37 | PM.HP.IH.1 ---
History of Present Illness History of Present Illness Date Patient Seen: 03/20/25 Time Patient Seen: 06:00 Date of Onset of Symptoms: 03/10/25 Chief complaint: Sand coming out of ear Narrative: Patient is a 79-year-old white male presents to the emergency room with hematuria and brown urine which was not going on for several days he can not quantify or qualify he has a very poor historian. States he has been having abdominal pain for many years he is having severe suprapubic pain but he can not quantify or qualify how many days that has been going on. He has also been having diarrhea of years duration denies any melena. Patient is very emaciated and cachectic looking much older than his stated age difficulty ambulating. The patient was very difficult historian walking and he states he does not want to stay here in the hospital and he wants to go home. Discussed in detail with the patient that he needs to be worked up his CT scan was performed which showed a small pelvic abscess with possible loop of small bowel or sigmoid colon causing pneumaturia has a history of Crohn's disease may have a abscess that needs to be drained prior to any interventional surgery but he is refusing transfer to a tertiary institution or being admitted here. Patient is signing the Against Medical Advice form at this time. Patient's CT scan also shows a normal gallbladder appendix is not visualized diverticulosis throughout the colon gas within the bladder it appears that he has got severe atherosclerotic vascular disease from heart 2 legs with appears that he may have an aortobifem graft but he is uncertain. The patient's abscess in his pelvis measures 4.8 x 1.9 x 1 0.9 cm. Admitting laboratory shows WBC of 10.6 hemoglobin 11.2 hematocrit is 33.8 platelets are 263,000 sodium is 131 potassium 4.5 chloride 101 bicarb is 24 BUN 33 creatinine is 1.95 random blood sugar is 107 lipase is 31 total bilirubin is 0.4 AST is 24 ALT is 7 alkaline phosphatase 95. Allergies: Adhesive tape and simvastatin Medications: See admission list Past medical history: Corrective lenses, edentulous, history of COPD, hypertension, hyperlipidemia, atherosclerotic vascular disease with coronary artery disease with an VT can not remember it was done states he did not have any catheterizations or stents. History of Crohn's disease since his 20s and 30s has had no previous surgery. 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 Vitals: Temperature is 97.6? pulse 60 respirations 24 BP is 147/67 SaO2 is 100% on room air. Patient is 5 ft 11 in tall 140 lb Patient is extremely emaciated and cachectic walking with a bent over slow shuffling gait. Head is normocephalic eyes PERRLA oropharyngeal cavity is edentulous and dry heart irregular rate and rhythm, lungs poor inspiratory and expiratory effort poor chest wall motion noted. Abdomen is soft nondistended with hypoactive bowel sounds patient has suprapubic and left lower quadrant tenderness with slight rebound. Musculoskeletal very poor muscle tone and strength but equal bilaterally. Impression: Abdominal pain patient can not quantify or qualify is suprapubic and left lower quadrant CT scan showing inflammation in the pelvis with a 4.8 x 1.9 x 1.9 cm abscess with inflammatory changes on the small bowel and sigmoid colon with hematuria noted severe diverticular disease severe atherosclerotic vascular disease. History of atherosclerotic vascular disease with coronary artery disease with VT date unknown History of Crohn's disease diagnosed in his 20s or 30s Chronic anemia Hypertension, Hyperlipidemia, Tobacco abuse 1 pack per day times 72 years Plan: Discussed with the patient the findings need for admission and treatment desire to transfer patient to a tertiary hospital for definitive care of the colovesical fistula patient is adamant he refuses admission in the hospital refuses transfer to a tertiary hospital refuses all care he desires to be signed out Against Medical Advice is already taken off his electrodes and has street clothes on. Patient is adamant he wants to leave even though he has been discussed that his chance of sepsis and is quite high the patient has signed the Against Medical Advice forms in his in the process of leaving. [facility] Medical History Chronic anemia Crohn's disease Nonsustained ventricular tachycardia COPD (chronic obstructive pulmonary disease) Social History household members: friend(s) and caregiver alcohol intake: never Meds Home Medications and Allergies Home Medications ?Medication ?Instructions ?Recorded ?Confirmed ?Type LISINOPRIL/HYDROCHLOROTHIAZIDE 1 tab PO QDAY ##0 05/14/11 History (Lisinopril-Hctz 20-25 MG Tab) ferrous gluconate 240 mg (27 mg 240 mg PO ##0 04/26/17 History iron) tablet (Iron High Potency) omega 3-djx-khi-fish oil 1,000 mg 1,000 mg PO ##3 04/26/17 History (120 mg-180 mg) capsule (Fish Oil) albuterol sulfate 90 mcg/actuation 2 puff inhalation Q6H PRN 09/16/23 Rx aerosol inhaler shortness of breath or wheezing #6.7 grams amiodarone 200 mg tablet 200 mg PO DAILY 09/16/23 09/16/23 History azathioprine 50 mg tablet 50 mg PO DAILY 09/16/23 09/16/23 History gabapentin 100 mg capsule 100 mg PO 3XD 09/16/23 09/16/23 History amoxicillin 875 mg-potassium 1 tab PO BID #20 tabs 03/20/25 Rx clavulanate 125 mg tablet Allergies Allergy/AdvReac Type Severity Reaction Status Date / Time adhesive (ADHESIVE) AdvReac Mild RASH Verified 03/20/25 14:51 simvastatin (SIMVASTATIN) AdvReac Mild WELTS Verified 03/20/25 14:51 Exam Vital Signs (past 8 hours): - 03/20/25 14:51 03/20/25 15:23 03/20/25 15:34 Temperature 97.6 F Pulse Rate 64 64 61 Respiratory Rate 18 18 Blood Pressure 138/63 Pulse Oximetry 100 100 98 Oxygen Delivery Method Room Air 03/20/25 15:35 03/20/25 15:35 03/20/25 16:00 Temperature Pulse Rate 60 59 L Respiratory Rate 21 26 H Blood Pressure 147/67 H Pulse Oximetry 100 99 Oxygen Delivery Method 03/20/25 16:01 03/20/25 16:01 03/20/25 16:30 Temperature Pulse Rate 59 L Respiratory Rate 26 H Blood Pressure 120/56 L 144/67 H Pulse Oximetry 99 Oxygen Delivery Method 03/20/25 16:30 03/20/25 17:00 03/20/25 17:00 Temperature Pulse Rate 60 60 Respiratory Rate 26 H 25 H Blood Pressure 127/60 Pulse Oximetry 99 98 Oxygen Delivery Method 03/20/25 17:30 03/20/25 17:30 03/20/25 18:02 Temperature Pulse Rate 59 L 86 Respiratory Rate 25 H Blood Pressure 135/63 Pulse Oximetry 98 93 Oxygen Delivery Method 03/20/25 18:03 03/20/25 18:03 Temperature Pulse Rate 73 Respiratory Rate 25 H Blood Pressure 148/67 H Pulse Oximetry 93 Oxygen Delivery Method Oxygen Delivery Method Room Air Objective Labs 03/20/25 15:15 03/20/25 15:15 Labs: Laboratory Results - last 24 hr 03/20/25 15:15 WBC 10.6 RBC 3.74 L Hgb 11.2 L Hct 33.8 L MCV 90.6 MCH 29.9 MCHC 33.0 RDW 14.6 Plt Count 263 Neut % (Auto) 79.5 H Lymph % (Auto) 13.7 L Sebastian % (Auto) 5.6 Eos % (Auto) 0.8 L Baso % (Auto) 0.4 Neut # (Auto) 8400 H Lymph # (Auto) 1500 Sebastian # (Auto) 600 Eos # (Auto) 100 Baso # (Auto) 0 Sodium 131 L Potassium 4.5 Chloride 101 Carbon Dioxide 24 BUN 33 H Creatinine 1.95 H Estimated GFR 34 L BUN/Creatinine Ratio 16.9 Glucose 107 H Calcium 8.6 Total Bilirubin 0.4 AST 24 ALT 7 Alkaline Phosphatase 95 Total Protein 8.3 H Albumin 3.7 Globulin 4.6 H Albumin/Globulin Ratio 0.8 L Lipase 31 Assessment & Plan Time-Based Coding :: [TOTAL MINUTES] spent with patient and on the chart (including review of chart, obtaining history, exam, reviewing outside data, placing orders, documenting exam and treatment plan, and counseling patient) on [DATE]. [employer] Engineer Document charge(s): Yes
--- NOTE | 2025-03-20 18:42 | PC.NURSE ---
Patient was given thorough explanation to his condition by the ER doc and the consulting General Surgeon, [place]. The patient is alert and oriented x 4 and appears to be of sound mind as evidenced by his response to his situation. He stated I'm 79 years old and if it happens then it happens. He does not appear to be altered or in need of POA intervention.
--- NOTE | 2025-03-20 18:43 | PC.NURSE ---
Patient refused antibiotic medication.
--- NOTE | 2025-03-20 18:52 | PC.NURSE ---
Patient gave permission to call his POA and let her know that she should call and check on him. The POA stated she was going to come down to the ER to see the pt. She was informed that he did not consent to relaying any details of his care. The patient's POA stated she was coming down regardless. The patient refused all cares and intervention while here.
== END 2025-03-20 18:58 | disposition left against medical advice (07) ==
PROVIDERS: Emergency Provider Emergency Medicine; PCP Physician Assistant Medical
DX: K57.20 Diverticulitis of large intestine with perforation and abscess without bleeding (principal); N32.1 Vesicointestinal fistula
CPT/HCPCS: 36415; 74176; 80053; 83690; 85025; 99283

== ENCOUNTER 2025-03-20 19:22 | Emergency (ER) | payer MEDICARE, SELFPAY ==
[2023-09-15 22:44] VITALS: BMI 18.1
[2025-03-20] VITALS (9 sets, daily range): BP systolic 117–149; BP diastolic 58–88; PULSE 58–75; RESP 16–30; TEMP 36.1; O2SAT 96–100; BMI 19.5
--- NOTE | 2025-03-20 19:39 | ED_ITS ---
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 Patient had noted sand coming out of my penis and it looks like diced carrots when he urinates. States it just started in the last day. Patient left against medical advice but returns with his DPOA. Patient has a little bit confused and at this time that he would like to continue with treatment and surgical intervention patient is agreeable. Patient denies any fevers chills no nausea or vomiting has had chronic diarrhea from his Crohn's denies any black or bloody stools. He denies any dysuria urgency frequency or testicular pain. He is on azathioprine for his Crohn's but does not know his other medications. Uses tobacco daily, no daily alcohol, no recreational drugs reported. Has a caregiver who lives with him. Patient was seen by general surgery here in the department and recommended transfer. We will plan for transfer to a larger [facility]. Related Data Home Medications ?Medication ?Instructions ?Recorded ?Confirmed LISINOPRIL/HYDROCHLOROTHIAZIDE 1 tab PO QDAY ##0 05/14 (Lisinopril-Hctz 20-25 MG Tab) ferrous gluconate 240 mg (27 mg 240 mg PO ##0 04/26/17 iron) tablet (Iron High Potency) omega 6-gri-bwr-fish oil 1,000 mg 1,000 mg PO ##3 04/01 12/14 (120 mg-180 mg) capsule (Fish Oil) amiodarone 200 mg tablet 200 mg PO DAILY 09/16/23 azathioprine 50 mg tablet 50 mg PO DAILY 09/16/2308/29 gabapentin 100 mg capsule 100 mg PO 3XD 09/16/2309/15 Previous Rx's ?Medication ?Instructions ?Recorded albuterol sulfate 90 mcg/actuation 2 puff inhalation Q 6H PRN 09/16/23 aerosol inhaler shortness of breath or wheez ing #6.7 grams amoxicillin 875 mg-potassium 1 tab PO BID #20 tabs clavulanate 125 mg tablet Allergies Allergy/AdvReac Type Severity Reaction Status Date / Time adhesive (ADHESIVE) AdvReac Mild RASH Verified 03/20/25 19:32 simvastatin (SIMVASTATIN) AdvReac Mild WELTS Verified 03/20/25 19:32 Review of Systems <Jami Rider DO - Last Filed: 03/23/25 22:24> Review of Systems ROS Unobtainable: All systems reviewed & are unremarkable except as noted in HPI and below Patient History <Jami Rider DO - Last Filed: 03/23/25 22:24> Medical History Chronic anemia Crohn's disease Nonsustained ventricular tachycardia COPD (chronic obstructive pulmonary disease) Social History household members: friend(s) and caregiver alcohol intake: never alcohol intake frequency: holidays/special occasions only Exam <Jami Rider DO - Last Filed: 03/23/25 22:24> Narrative Exam Narrative: GENERAL: Alert, confused, elderly male mild distress. HEENT: Head normocephalic, atraumatic, EOMI, pupils reactive, face symmetric, moist mucous membranes NECK: Supple, full range of motion CARDIOVASCULAR: Regular rate and rhythm without murmurs, rubs or gallops. RESPIRATORY: Breath sounds equal bilaterally, no wheezes rales or rhonchi. ABDOMEN: Soft, nontender. Normoactive bowel sounds all 4 quadrants. No guarding or rebound, rigidity, no mass : No CVA tenderness, Male: normal external examination, no penile discharge or lesions, testicles non-tender, cremasteric reflex intact, no inguinal hernias noted. EXTREMITIES: Normal range of motion, no clubbing or edema. Neurovascularly intact NEUROLOGICAL: Cranial nerves II through XII grossly intact. Moving all extremities SKIN: Warm, dry, no petechiae, no rashes or lesions. Initial Vital Signs Initial Vital Signs: Vital Signs Temperature 97.0 F L 03/20/25 19:32 Pulse Rate 75 10/21/25 19:32 Respiratory Rate 16 03/20/25 19:32 Blood Pressure 139/65 03/20/25 19:32 Pulse Oximetry 97 03/20/25 19:32 Oxygen Delivery Method Room Air 03/20/25 19:32 <Kip Graves MD - Last Filed: 03/21/25 07:19> Initial Vital Signs Initial Vital Signs: Vital Signs Temperature 97.0 F L 03/20/25 19:32 Pulse Rate 75 03/20/25 19:32 Respiratory Rate 16 03/20/25 19:32 Blood Pressure 139/65 03/20/25 19:32 Pulse Oximetry 97 03/20/25 19:32 Oxygen Delivery Method Room Air 03/20/25 19:32 Course <Jami Rider DO - Last Filed: 03/23/25 22:24> Orders Ordered: Discontinued Medications Piperacillin Sod/Tazobactam (Sod 4.5 gm/ Sodium Chloride) 100 mls @ 200 mls/hr IV NOW ONE Stop: 03/20/25 19:39 Last Infusion: 03/20/25 21:22 Dose: Infused Documented By: Admin: 03/20/25 20:26 Dose: 200 mls/hr Documented By: MICHELLE Piperacillin Sod/Tazobactam (Sod 3.375 gm/ Sodium Chloride) 100 mls @ 200 mls/hr IV NOW ONE Stop: 03/21/25 04:01 Lactated Ringer's (Lactated Ringers) 1,000 mls @ 125 mls/hr IV CONT [facility] Last Admin: 03/21/25 04:04 Dose: Not Given Documented By: MICHELLE Piperacillin Sod/Tazobactam (Sod 3.375 gm/ Sodium Chloride) 100 mls @ 25 mls/hr IV Q8H [facility] Last Admin: 03/21/25 03:50 Dose: 25 mls/hr Documented By: MICHELLE Sodium Chloride (Normal Saline 0.9%) 1,000 mls @ 125 mls/hr IV CONT [facility] Last Admin: 03/21/25 04:05 Dose: 125 mls/hr Documented By: MICHELLE Nicotine (Nicotine 21 Mg Patch) 21 mg TOP NOW ONE Stop: 03/20/25 19:39 Last Admin: 03/20/25 20:34 Dose: 21 mg Documented By: MICHELLE Vital Signs Vital signs: Vital Signs - 8 hr 03/20/25 23:30 03/20/25 23:30 03/21/25 00:00 Temperature Pulse Rate 58 L 59 L Respiratory Rate 30 H 21 Blood Pressure 123/63 Pulse Oximetry 97 96 Oxygen Delivery Method Room Air 03/21/25 00:00 03/21/25 00:30 03/21/25 00:30 Temperature Pulse Rate 57 L Respiratory Rate 19 Blood Pressure 119/63 122/63 Pulse Oximetry 96 Oxygen Delivery Method 03/21/25 01:00 03/21/25 01:00 03/21/25 01:30 Temperature Pulse Rate 56 L 56 L Respiratory Rate 16 Blood Pressure 127/63 Pulse Oximetry 96 97 Oxygen Delivery Method 03/21/25 01:30 03/21/25 02:00 03/21/25 02:00 Temperature Pulse Rate 53 L Respiratory Rate 19 Blood Pressure 119/63 123/58 L Pulse Oximetry 97 Oxygen Delivery Method 03/21/25 02:30 03/21/25 02:30 03/21/25 03:00 Temperature Pulse Rate 58 L 59 L Respiratory Rate Blood Pressure 102/59 L Pulse Oximetry 96 96 Oxygen Delivery Method 03/21/25 03:00 03/21/25 03:30 03/21/25 03:30 Temperature Pulse Rate 59 L Respiratory Rate Blood Pressure 112/55 L 130/62 Pulse Oximetry 96 Oxygen Delivery Method 03/21/25 06:34 03/21/25 06:34 Temperature 97.6 F Pulse Rate 68 Respiratory Rate 16 Blood Pressure 131/62 Pulse Oximetry 98 Oxygen Delivery Method <Kip Graves MD - Last Filed: 03/21/25 07:19> Orders Ordered: Discontinued Medications Piperacillin Sod/Tazobactam (Sod 4.5 gm/ Sodium Chloride) 100 mls @ 200 mls/hr IV NOW ONE Stop: 03/20/25 19:39 Last Infusion: 03/20/25 21:22 Dose: Infused Documented By: Admin: 03/20/25 20:26 Dose: 200 mls/hr Documented By: MICHELLE Piperacillin Sod/Tazobactam (Sod 3.375 gm/ Sodium Chloride) 100 mls @ 200 mls/hr IV NOW ONE Stop: 03/21/25 04:01 Lactated Ringer's (Lactated Ringers) 1,000 mls @ 125 mls/hr IV CONT [facility] Last Admin: 03/21/25 04:04 Dose: Not Given Documented By: MICHELLE Piperacillin Sod/Tazobactam (Sod 3.375 gm/ Sodium Chloride) 100 mls @ 25 mls/hr IV Q8H [facility] Last Admin: 03/21/25 03:50 Dose: 25 mls/hr Documented By: MICHELLE Sodium Chloride (Normal Saline 0.9%) 1,000 mls @ 125 mls/hr IV CONT [facility] Last Admin: 03/21/25 04:05 Dose: 125 mls/hr Documented By: MICHELLE Nicotine (Nicotine 21 Mg Patch) 21 mg TOP NOW ONE Stop: 03/20/25 19:39 Last Admin: 03/20/25 20:34 Dose: 21 mg Documented By: MICHELLE Vital Signs Vital signs: Vital Signs - 8 hr 03/20/25 23:30 03/20/25 23:30 03/21/25 00:00 Temperature Pulse Rate 58 L 59 L Respiratory Rate 30 H 21 Blood Pressure 123/63 Pulse Oximetry 97 96 Oxygen Delivery Method Room Air 03/21/25 00:00 03/21/25 00:30 03/21/25 00:30 Temperature Pulse Rate 57 L Respiratory Rate 19 Blood Pressure 119/63 122/63 Pulse Oximetry 96 Oxygen Delivery Method 03/21/25 01:00 03/21/25 01:00 03/21/25 01:30 Temperature Pulse Rate 56 L 56 L Respiratory Rate 16 Blood Pressure 127/63 Pulse Oximetry 96 97 Oxygen Delivery Method 03/21/25 01:30 03/21/25 02:00 03/21/25 02:00 Temperature Pulse Rate 53 L Respiratory Rate 19 Blood Pressure 119/63 123/58 L Pulse Oximetry 97 Oxygen Delivery Method 03/21/25 02:30 03/21/25 02:30 03/21/25 03:00 Temperature Pulse Rate 58 L 59 L Respiratory Rate Blood Pressure 102/59 L Pulse Oximetry 96 96 Oxygen Delivery Method 03/21/25 03:00 03/21/25 03:30 03/21/25 03:30 Temperature Pulse Rate 59 L Respiratory Rate Blood Pressure 112/55 L 130/62 Pulse Oximetry 96 Oxygen Delivery Method 03/21/25 06:34 03/21/25 06:34 Temperature 97.6 F Pulse Rate 68 Respiratory Rate 16 Blood Pressure 131/62 Pulse Oximetry 98 Oxygen Delivery Method MDM - Male Genitourinary <Jami Rider, DO - Last Filed: 03/23/25 22:24> Lab Data Labs: Lab Results 03/20/25 Range/Units 18:09 Urine Color Yellow Urine Appearance Cloudy Urine pH 5.5 (4.5-8.0) Ur Specific [place] 1.020 (1.000-1.035) Urine Protein 1+ H (Negative) Urine Glucose (UA) 1+ H (Negative) g/dL Urine Ketones Negative (NEGATIVE) Urine Occult Blood 3+ H (Negative) Urine Nitrate Positive H (Negative) Urine Bilirubin Negative (NEGATIVE) Urine Urobilinogen 0.2 (0.2) E.U./dL Ur Leukocyte Esterase Trace H (NEGATIVE) Urine RBC 10-30/hpf H (0-5/HPF) Urine WBC 10-30/hpf H (0-5/HPF) Ur Squamous Epith Cells 0-1 /hpf (0-5/HPF) Amorphous Sediment 2+ Urine Bacteria Many (>30) H (None) Ur Culture Indicated? Specimen cultured Vol Urine Centrifuged 10ml (spun) [facility] Narrative Medical decision making narrative: Labs show white count of 10 hemoglobin 11.2 platelets of 263, creatinine is 1.95 was 1.76 on 02/24 sodium is 131 BUN 33 glucose is 107 total protein, globulin are elevated. Lipase is 31. CT imaging shows acute diverticulitis at the sigmoid level with a colovesical fistula adjacent 1.9 x 4.8 x 1.9 cm suspected interloop abscess located between urinary bladder inflamed small and large bowel. Scattered air-fluid levels with mildly data that is small bowel. Cholelithiasis without changes concerning cholecystitis. Status post aortobifemoral bypass. Abdominal aortic aneurysm. No retroperitoneal hematoma. Urine, 1+ protein 1+ glucose 3+ blood, positive nitrates, trace leuks, 10-30 RBCs 10-30 WBCs many bacteria specimen was cultured. Patient was started on Zosyn Plan for transfer to larger facility. Patient signed out to Dr. Graves while awaiting callbacks for transfer. Spoke with Dr. Palmer general surgery at [facility] @ [phone]. We would be happy to see patient notes patient might have a drain prior to having any surgical intervention otherwise. Plan to consult with the hospitalist for admission to medicine service with surgery to consult. Hospitalist service paged. Patient signed out to Dr. Star yen while awaiting call back from hospitalist service. 03/04/25, 5, Star. Sign-out from Dr. Rider. Anticipated transfer. 79-year-old male with complaint of abdominal pain and discolored urine, left the emergency department after labs drawn earlier today, brought back by medical power of environmental attorney for further evaluation. CT abdomen and pelvis scanning shows acute sigmoid diverticulitis with colovesical fistula adjacent, dimensions 1.9 x 4.8 x 1.9 cm with interloop abscess that is located between the urinary bladder and inflamed small/large bowel, cholelithiasis incidentally noted, status post aortobifemoral bypass and abdominal aortic aneurysm without retroperitoneal hematoma or free fluid. Urinalysis suspicious for infection. IV Zosyn given. Local general surgery consulted, who felt patient needed higher level of care. Contact was made with General surgery at [facility] Dr. Pope who we will consult. Anticipate call back from hospitalist for transfer. Hemodynamically stable. Assumed care. 0005, case discussed with [facility] hospitalist Dr. Jensen, who accepts patient for transfer. We will make ALS transfer arrangements. 0100, no ground ambulance services available until 0800, [employer] query to air ambulance services not available due to weather, we will continued to requests q2 hour weather checks for air transport will order scheduled IV Zosyn doses q6h while still here, maintenance IVF, keep NPO. 0330, still no air ambulance access due to poor weather, ground transportation not available for another 4-5 hours. Clinically remains stable. Next dose of IV Zosyn ordered for 0400 upcoming. 0700, ground transport to within the hour. Last vitals 131/62, rate 68, resp 12. <Kip Graves MD - Last Filed: 03/21/25 07:19> Lab Data Labs: Lab Results 03/20/25 Range/Units 18:09 Urine Color Yellow Urine Appearance Cloudy Urine pH 5.5 (4.5-8.0) Ur Specific [place] 1.020 (1.000-1.035) Urine Protein 1+ H (Negative) Urine Glucose (UA) 1+ H (Negative) g/dL Urine Ketones Negative (NEGATIVE) Urine Occult Blood 3+ H (Negative) Urine Nitrate Positive H (Negative) Urine Bilirubin Negative (NEGATIVE) Urine Urobilinogen 0.2 (0.2) E.U./dL Ur Leukocyte Esterase Trace H (NEGATIVE) Urine RBC 10-30/hpf H (0-5/HPF) Urine WBC 10-30/hpf H (0-5/HPF) Ur Squamous Epith Cells 0-1 /hpf (0-5/HPF) Amorphous Sediment 2+ Urine Bacteria Many (>30) H (None) Ur Culture Indicated? Specimen cultured Vol Urine Centrifuged 10ml (spun) MDM Narrative Medical decision making narrative: Labs show white count of 10 hemoglobin 11.2 platelets of 263, creatinine is 1.95 was 1.76 on 02/24 sodium is 131 BUN 33 glucose is 107 total protein, globulin are elevated. Lipase is 31. CT imaging shows acute diverticulitis at the sigmoid level with a colovesical fistula adjacent 1.9 x 4.8 x 1.9 cm suspected interloop abscess located between urinary bladder inflamed small and large bowel. Scattered air-fluid levels with mildly data that is small bowel. Cholelithiasis without changes concerning cholecystitis. Status post aortobifemoral bypass. Abdominal aortic aneurysm. No retroperitoneal hematoma. Urine, 1+ protein 1+ glucose 3+ blood, positive nitrates, trace leuks, 10-30 RBCs 10-30 WBCs many bacteria specimen was cultured. Patient was started on Zosyn Plan for transfer to larger facility. Patient signed out to Dr. Graves while awaiting callbacks for transfer. Spoke with Dr. Palmer general surgery at [facility] @ [phone]. We would be happy to see patient notes patient might have a drain prior to having any surgical intervention otherwise. Plan to consult with the hospitalist for admission to medicine service with surgery to consult. Hospitalist service paged at 03/04/25, [phone]. Sign-out from Dr. Rider. Anticipated transfer. 79-year-old male with complaint of abdominal pain and discolored urine, left the emergency department after labs drawn earlier today, brought back by medical power of environmental attorney for further evaluation. CT abdomen and pelvis scanning shows acute sigmoid diverticulitis with colovesical fistula adjacent, dimensions 1.9 x 4.8 x 1.9 cm with interloop abscess that is located between the urinary bladder and inflamed small/large bowel, cholelithiasis incidentally noted, status post aortobifemoral bypass and abdominal aortic aneurysm without retroperitoneal hematoma or free fluid. Urinalysis suspicious for infection. IV Zosyn given. Local general surgery consulted, who felt patient needed higher level of care. [facility]. Anticipate call back from hospitalist for transfer. Hemodynamically stable. Assumed care. 0005, case discussed with [facility] hospitalist Dr. Jensen, who accepts patient for transfer. We will make ALS transfer arrangements. 0100, no ground ambulance services available until 0800, [employer] query to air ambulance services not available due to weather, we will continued to requests q2 hour weather checks for air transport will order scheduled IV Zosyn doses q6h while still here, maintenance IVF, keep NPO. 0330, still no air ambulance access due to poor weather, ground transportation not available for another 4-5 hours. Clinically remains stable. Next dose of IV Zosyn ordered for 0400 upcoming. 0700, ground transport to within the hour. Last vitals 131/62, rate 68, resp 12. Discharge Plan Departure Patient Disposition: [facility] Clinical Impression: [place]-vesical fistula, Abscess of sigmoid colon due to diverticulitis Prescriptions: No Action LISINOPRIL/HYDROCHLOROTHIAZIDE (Lisinopril-Hctz 20-25 MG Tab) 1 tab PO QDAY Qty: 0 ferrous gluconate [Iron High Potency] 240 MG tablet 240 mg PO Qty: 0 omega 9-ncd-oia-fish oil [Fish Oil] 1,000 MG capsule 1,000 mg PO Qty: 3 amiodarone 200 mg tablet 200 mg PO DAILY azathioprine 50 mg tablet 50 mg PO DAILY gabapentin 100 mg capsule 100 mg PO 3XD albuterol sulfate 90 mcg/actuation HFA aerosol inhaler 2 puff inhalation Q6H PRN (Reason: shortness of breath or wheezing) Qty: 6.7 0RF amoxicillin-pot clavulanate 875-125 mg tablet 1 tab PO BID Qty: 20 0RF Referrals: Tresa Fonseca PA-C [Primary Care Provider, Medical]
[2025-03-20 20:03] LABS: Appearance Urine UA CLOUDY; Bilirubin Urine UA NEGATIVE (NEGATIVE); Color Urine UA YELLOW; Ketones Urine UA NEGATIVE (NEGATIVE); Leukocyte Esterase Urine UA TRACE (NEGATIVE); Nitrite Urine UA POSITIVE (Negative); Occult Blood Urine UA 3+ (Negative); Protein Urine UA 1+ (Negative); Specific Gravity Urine UA 1.020 (1.000-1.035); Urobilinogen Urine UA 0.2 E.U./dL (0.2); pH Urine UA 5.5 (4.5-8.0)
[2025-03-20 20:06] LABS: Glucose Urine UA 1+ g/dL (Negative)
[2025-03-20 20:07] LABS: Culture Indicated Urine Specimen Cultured
[2025-03-20] MEDS: PIPERACILLIN/TAZO 4.5 GM in SODIUM CHLORIDE 0.9% 100 ML IV (20:26)
[2025-03-20] MEDS: NICOTINE 21 MG PATCH TOP (20:34)
--- NOTE | 2025-03-20 21:11 | PC.NURSE ---
Pt's belongings, including clothing and wallet, sent home with family.
[2025-03-21] VITALS (11 sets, daily range): BP systolic 102–131; BP diastolic 55–63; PULSE 53–68; RESP 16–21; TEMP 36.4; O2SAT 96–98
[2025-03-21] MEDS: PIPERACILLIN/TAZO 3.375 GM in SODIUM CHLORIDE 0.9% 100 ML IV (03:50)
[2025-03-21] MEDS: SODIUM CHLORIDE 0.9% 1,000 ML 125 ML IV (04:05)
--- NOTE | 2025-03-21 08:13 | PC.NURSE ---
report given to vanessa marshall at [facility] at this time
== END 2025-03-21 08:16 | disposition short-term general hospital (02) ==
PROVIDERS: Emergency Medicine; Emergency Provider Emergency Medicine; PCP Physician Assistant Medical
DX: K57.20 Diverticulitis of large intestine with perforation and abscess without bleeding (principal); N32.1 Vesicointestinal fistula; Z72.0 Tobacco use
CPT/HCPCS: 36415; 74176; 80053; 81001; 83690; 85025; 87077; 87086; 87186; 96365; 99283; 99284; J2543; J7030; J7050

== ENCOUNTER 2025-04-03 18:15 | Emergency (ER) | payer MEDICARE, SELFPAY ==
[2023-09-15 22:44] VITALS: BMI 18.1
[2025-04-03] VITALS (10 sets, daily range): BP systolic 129–159; BP diastolic 61–72; PULSE 60–78; RESP 18; TEMP 37.2; O2SAT 97–100; BMI 19.2
--- NOTE | 2025-04-03 18:24 | ED_ITS ---
HPI - General Adult
--- NOTE | 2025-04-03 18:24 | ED.GENADULT ---
HPI - General Adult General Chief complaint: Urogenital-Male Stated complaint: Urinary issues Time Seen by Provider: 04/03/25 18:18 History of Present Illness HPI narrative: 79-year-old gentleman with history of Crohn's disease, hypertension, COPD, cognitive deficits who was recently seen at [facility] with sigmoid diverticulitis and a colovesical fistula and he is voiding stool. Patient has not caregiver who lives with him and his [id number], Nicol Brizuela [phone], is currently out of town but has been notified that he is currently in the emergency department. He was eventually transferred to [facility] and according to his caregiver he had 2 days of IV antibiotics and was discharged home on oral antibiotics and has recently completed those. Patient's only complaint is pain in his ?winke particularly when he voids but also complains of discomfort at the penile meatus simply at rest. No fevers no significant abdominal pain. Related Data Home Medications ?Medication ?Instructions ?Recorded ?Confirmed LISINOPRIL/HYDROCHLOROTHIAZIDE 1 tab PO QDAY ##0 05/14/11 (Lisinopril-Hctz 20-25 MG Tab) ferrous gluconate 240 mg (27 mg 240 mg PO ##0 04/26/17 iron) tablet (Iron High Potency) omega 1-bml-qxi-fish oil 1,000 mg 1,000 mg PO ##3 04/26/17 (120 mg-180 mg) capsule (Fish Oil) amiodarone 200 mg tablet 200 mg PO DAILY 09/16/23 09/16/23 azathioprine 50 mg tablet 50 mg PO DAILY 09/16/23 09/16/23 gabapentin 100 mg capsule 100 mg PO 3XD 09/16/23 09/16/23 Previous Rx's ?Medication ?Instructions ?Recorded albuterol sulfate 90 mcg/actuation 2 puff inhalation Q6H PRN 09/16/23 aerosol inhaler shortness of breath or wheezing #6.7 grams amoxicillin 875 mg-potassium 1 tab PO BID #20 tabs 03/20/25 clavulanate 125 mg tablet Allergies Allergy/AdvReac Type Severity Reaction Status Date / Time adhesive (ADHESIVE) AdvReac Mild RASH Verified 04/03/25 18:25 simvastatin (SIMVASTATIN) AdvReac Mild WELTS Verified 04/03/25 18:25 Review of Systems Review of Systems Narrative: Pertinent positive and negative findings as per HPI Patient History Medical History (Updated 04/03/25 @ 20:19 by Christianne Jonas MD) [place]-vesical fistula Abscess of sigmoid colon due to diverticulitis Chronic anemia Crohn's disease Nonsustained ventricular tachycardia COPD (chronic obstructive pulmonary disease) Social History household members: friend(s) and caregiver alcohol intake: never alcohol intake frequency: holidays/special occasions only Exam Initial Vital Signs Initial Vital Signs: Vital Signs Pulse Oximetry 100 04/03/25 18:19 General: Alert, in no acute distress, appears older than stated age Respiratory: Able to speak in full sentences, no obvious respiratory distress Skin: No obvious rashes, warm and dry Abdomen: No abdominal tenderness no flank pain Neurologic: Grossly intact no obvious asymmetries or abnormalities Psych: appropriate insight and affect, cooperative Course Orders Ordered: Discontinued Medications Lorazepam (Lorazepam 0.5 Mg Tablet) 2 mg PO NOW ONE Stop: 04/03/25 19:51 Last Admin: 04/03/25 20:22 Dose: 2 mg Documented By: ROJAS Nicotine (Nicotine 21 Mg Patch) 21 mg TOP NOW ONE Stop: 04/03/25 19:32 Last Admin: 04/03/25 20:23 Dose: 21 mg Documented By: ROJAS Vital Signs Vital signs: Vital Signs - 8 hr 04/03/25 18:19 04/03/25 18:20 04/03/25 18:20 Temperature Pulse Rate 67 Respiratory Rate Blood Pressure 159/72 H Pulse Oximetry 100 99 Oxygen Delivery Method 04/03/25 18:21 04/03/25 18:25 04/03/25 18:46 Temperature 99 F Pulse Rate 78 Respiratory Rate 18 Blood Pressure 159/72 H 129/61 Pulse Oximetry 99 99 Oxygen Delivery Method Room Air 04/03/25 18:47 04/03/25 19:00 04/03/25 19:30 Temperature Pulse Rate 60 65 62 Respiratory Rate Blood Pressure Pulse Oximetry 99 99 99 Oxygen Delivery Method 04/03/25 20:00 04/03/25 20:30 Temperature Pulse Rate 66 61 Respiratory Rate Blood Pressure Pulse Oximetry 97 99 Oxygen Delivery Method Medical Decision Making MDM Narrative Medical decision making narrative: 79-year-old gentleman who comes in with neha stool from his penis. Has been going on for almost 24 hours. He complains of some mild irritation at the penile meatus, no abdominal pain. Had similar findings and on March 21 was seen in the emergency department here diagnosed with a abscess of the sigmoid colon due to diverticulitis. He was transferred to [facility] and had consultations with General surgery, Urology and GI. He has a history of Crohn's disease in his chose not to treat it. The thought was that he has developed a sigmoid vesico fistula secondary she was Crohn's disease. He was offered surgery in chose to leave against medical advice. With the recurrence of neha stool in his urine today he comes in and does not have much recollection beyond the fact that he has spent 2 days in the hospital and finished some antibiotics. He does have a caregiver who is with him. He also has a close lifetime friend who has durable power of personal injury attorney including healthcare. Nicol Brizuela [phone] patient does have worsening dementia and in discussion with Nicol this evening, she would like him to be transferred to [facility] and would like him to have the colovesical surgery. The thinking is he is demented enough that he will not remember way there continues to be stool from his penis and we will continue presenting to the ER complaining of this unless it is fixed. Recognition of difficulty of surgery and morbidity and mortality of surgical intervention is weighed as well. She would still like to proceed with surgery. She requests that he not be allowed to declined surgery and not be allowed to leave against medical advice Patient is very much on board with this entire plan. He wants to go to [facility], he wants to have surgery and he wants to have this fixed completely. His main complaint is that he also wants a cigarette. He is given nicotine patch and 2 mg of oral Ativan to help with his irritation. Care was discussed with Dr. Viviana Horvath, general surgery at [facility]. Together we reviewed records from his recent visit to [facility]. She agrees to arrange for consultation between surgery Urology and Gastroenterology once he arrives. With shared decision-making we opted to defer all testing including IV start, lab testing and any advanced imaging until he gets to [facility]. Care is discussed with the hospitalist physician at [facility] and patient has been accepted. We will plan on BLS transfer once bed is available. Patient remains hemodynamically stable, afebrile, no signs infection or sepsis and safe to defer additional testing until he arrives at [facility]. Patient, his power of personal injury attorney as well as his caregiver are all in complete agreement with the plan as outlined above. Discharge Plan Departure Patient Disposition: [facility] Clinical Impression: [place]-vesical fistula, Impaired memory, Continuous tobacco abuse Prescriptions: No Action LISINOPRIL/HYDROCHLOROTHIAZIDE (Lisinopril-Hctz 20-25 MG Tab) 1 tab PO QDAY Qty: 0 ferrous gluconate [Iron High Potency] 240 MG tablet 240 mg PO Qty: 0 omega 7-qod-pgq-fish oil [Fish Oil] 1,000 MG capsule 1,000 mg PO Qty: 3 amiodarone 200 mg tablet 200 mg PO DAILY azathioprine 50 mg tablet 50 mg PO DAILY gabapentin 100 mg capsule 100 mg PO 3XD albuterol sulfate 90 mcg/actuation HFA aerosol inhaler 2 puff inhalation Q6H PRN (Reason: shortness of breath or wheezing) Qty: 6.7 0RF amoxicillin-pot clavulanate 875-125 mg tablet 1 tab PO BID Qty: 20 0RF Referrals: Tresa Fonseca PA-C [Primary Care Provider, Family Practice]
[2025-04-03] MEDS: NICOTINE 21 MG PATCH TOP (20:23)
--- NOTE | 2025-04-03 22:38 | PC.NURSE ---
Called report to [facility], nurse not yet available (22:15), nurse will call back when available.
== END 2025-04-03 21:32 | disposition short-term general hospital (02) ==
PROVIDERS: Emergency Provider Emergency Medicine; PCP Physician Assistant Medical
DX: N32.1 Vesicointestinal fistula (principal); R41.3 Other amnesia; Z72.0 Tobacco use; I10 Essential (primary) hypertension
CPT/HCPCS: 99283